=== PATIENT | female | born 1965 | race Asian ===

== ENCOUNTER → 2020-09-18 09:02 | Outpatient (CLI) | payer BC, SELFPAY ==
[2020-09-18 10:16] LABS: Hematocrit 45.2 % (37-47); Mean Corpuscular Hgb 24.7 pg (27.0-32.0); Mean Corpuscular Volume 79.9 fL (81-99); Mean Platelet Vol. 9.2 fl (6.2-12.0); Platelet Count 286 K/mm3 (150-450); RBC Distribution Width CV 13.5 % (11.6-14.6); RBC Distribution Width SD 38.5 fl (35.1-43.9); Red Blood Count 5.66 M/mm3 (4.2-5.4); White Blood Count 5.3 K/mm3 (4.4-11.0)
[2020-09-18 10:42] LABS: AST(SGOT) 18 U/L (15-37); Alanine Aminotransfer ALT/SGPT 44 U/L (13-56); Albumin, Serum 3.7 g/dL (3.2-5.0); Alkaline Phosphatase 98 U/L (45-117); Anion Gap 6 (5-15); BUN 14 mg/dL (7-18); BUN/Creat Ratio 17.8 RATIO (10-20); Calcium,Total 8.8 mg/dL (8.5-10.1); Chloride 110 mmol/L (98-107); Cholesterol 245 mg/dL (200); Creatinine, Serum 0.79 mg/dL (0.55-1.02); EST Glomerular Filtration Rate 80 mL/min (>60); Est Glom Filt Rate - Afr Amer 97 mL/min (>60); Globulin 3.6 g/dL (2.2-4.2); Glucose 95 mg/dL (74-106); High Density Lipoprotein 51 mg/dL; Potassium 3.9 mmol/L (3.5-5.1); Protein, Total 7.3 g/dL (6.4-8.2); Sodium Level 143 mmol/L (136-145); Triglycerides 114 mg/dL; Very Low Density Lipoprotein 23 mg/dL (5-40)
== END ==
PROVIDERS: PCP Family Medicine; Referring Provider Family Medicine; Visit Provider Family Medicine
DX: E78.5 Hyperlipidemia, unspecified (principal)
CPT/HCPCS: 36415; 80053; 80061; 85027

== ENCOUNTER → 2020-11-26 | Outpatient (CLI) | payer BC, SELFPAY ==
[2020-11-26 09:55] VITALS: BMI 34.2
[2020-11-28 20:48] LABS: HPV APTIMA, High Risk Negative (Negative)
== END | disposition home or self-care (01) ==
LOC: LABSPEC 12:29
PROVIDERS: PCP Family Medicine; Referring Provider Nurse Practitioner Women's Health; Visit Provider Nurse Practitioner Women's Health
DX: Z12.4 Encounter for screening for malignant neoplasm of cervix (principal)
CPT/HCPCS: 87624; 88175; G0145

== ENCOUNTER → 2021-02-11 12:22 | Outpatient (CLI) | payer BC, SELFPAY ==
[2020-11-26 09:55] VITALS: BMI 34.2
--- NOTE | 2021-02-11 12:26 | RAD_ITS ---
STUDY: X-RAY - LUMBAR SPINE REASON FOR EXAM: Female, 55 years old. LBP TECHNIQUE: 5 view(s) of the lumbar spine were obtained including oblique views. COMPARISON: None FINDINGS: Normal lumbar lordosis. There is no substantial scoliosis. There is a normal alignment of the vertebrae. There is multilevel endplate spondylosis of the lumbar vertebrae. There is multi-level degenerative disc disease with multi-level disc space narrowing. Facet joint osteoarthritis. Moderate amount of fecal material is seen in the colon. RAD/L/S Spine Min 4 Views IMPRESSION: Degenerative changes of the spine, as detailed above. Electronically Signed: West Hoff MD at 15:42 EDT , Service support ,
[2021-02-11 15:54] LABS: Thyroid Stim Hormone (TSH) 1.62 uIU/mL (0.358-3.74)
== END ==
PROVIDERS: PCP Family Medicine; Referring Provider Family Medicine; Visit Provider Family Medicine
DX: R53.83 Other fatigue (principal); M54.5 Low back pain
CPT/HCPCS: 36415; 72110; 84443

== ENCOUNTER 2021-02-26 18:30 | Outpatient (RCR) | payer BC, SELFPAY ==
[2020-11-26 09:55] VITALS: BMI 34.2
--- NOTE | 2021-01-13 10:43 | HP.PTEVAL ---
Patient's Visit Information MILEY DUTTA is a 55 year old F referred to Physical Therapy by Dr. Scooby Clifford MD with a diagnosis of LBP. Date of Evaluation: 01/13/21 Physical Therapist: Fabiano Park, SOUTHT, OCS, CSCS - Visit Plan Frequency: 2x /Week Duration: 4-6 Weeks Plan: 2x/week for 3-6 for. 1. ,monitor and progress ext biased Lea progression. 2. Teach and progress Pirifomris, ITB and hip flexor stretches to HEP. 3. Core and postural strength adn body mechanics instruct to HEP - Subjective LBP R>L , Legs tingle on and off in calves and laterally. Worse with walking alot. Gardening can make them worse also. This pain wears her out. 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 Can get pain in shoulders and migraines also. LBP has been present for 2-3 years slowly worsening and not constant. Intemrittent. Worse as she gained weight. Sitting is worse and can be hard to get up. 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 Has not missed work. Needs to learn how to stretch. Has seen chiropractor in September and had x rays and has uneven hips. Chiropractic has helped the neck. Sleep is interrupted on days after she gardens. Had to take advvil last week. Lots of bedning in the garden. No other hobbies except walking, no worse back pain when walking but R hip might get sore. Exercises: sometimes stretchi in morning. Basic ADLs are getting done. - Pain LBP Pain Intensity (Out of 10): 1 Pain Intensity Range: 0, 5 - Objective Walks I, trasnfers I, posture is forward head and flat lordosis in L/S. No tenderness in lumbar paraspinals. + L/S compression test. LE ROM WFL but obvious tightness in HS mildly, ITB and pirifromis moderately, hip flexor moderately. L/S AROM ext mod limted, flexion full, SB sore on contralateral side and min liimited. strength LE 4-/5, core 3+. sensation LE WNL to gross light touch. reflexes 2/3 patella and achilles - Balance Scores Functional Gait Assessment Score: 29 % Disability: 3.3400 - Goals Goal 1:: Full L/S AROM without pain Goal Time Frame: 4-6 Weeks Goal 2:: Work withotu increasing pain at end of day. Goal Time Frame: 4-6 Weeks Goal 3:: Gardening and yard work without deficits Goal Time Frame: 4-6 Weeks Goal 4:: Oswestry 3 or less. Goal Time Frame: 4-6 Weeks Goal 5:: I approp HEP for LB ROM, leg stretches and core strength Goal Time Frame: 4-6 Weeks - Rehabilitation Potential Physical Therapy Diagnosis: LBP with functional deficits Rehabilitation Potential: Good - Anticipated Interventions Patient/Client Instruction: Educate patient on: Condition For the Purpose of:: To decrease pain, To increase ROM, To improve muscle performance and motor function Therapeutic Exercise to Include: Strength training, Postural training, Flexibilty training, Gait and locomotor training, Neuromotor development, Passive ROM, Active ROM, Dynamic Lumbar Stabilization, Lea Exercises For the Purpose of:: To decrease pain, To increase ROM, To improve muscle performance and motor function, To increase tolerance to activity/condition/position, To improve gait and locomotor functions Manual Therapy Techniques to Include: Mobilization, Passive ROM, Soft tissue mobilization For the Purpose of:: To decrease pain, To increase ROM Cryotherapy (ice pack, ice massage): Yes For the Purpose of:: To decrease swelling/inflammation Thank you for the opportunity to evaluate your patient. For Medicare and Medicare HMO plans, please review the plan of care and approve it. It will need to be FAXED BACK to us at [phone] for Medicare purposes. For Medicare only, by signing this I certify the plan of care. Please let me know if there are questions or concerns regarding this plan of care. Physician Signature: Date:
--- NOTE | 2021-02-06 07:35 | HP.PTREVAL ---
Dr. Scooby Clifford MD, It has been my pleasure to treat MILEY DUTTA over the last 7 visits for LBP. Please see the progress note below for an update on the physical therapy plan of care! Subjective: Have some improvement since she started. Has improvement with pain intenisty in R hip laterally but is down to 2-3/10 instead of 5/10. LBP still hurts at 3/10 if stressed with movements such as bending. Sleep is OK most nights but needs advil some nights to sleep. HEP:stretching adn yoga at home. Neck has started hurting also. activities at home are normal as well as at work. Has had this pain for 3 years. No other testing for LB performed yet. Had x ray long time ago. Objective/Function: Full aROM L/S with some pain with extension today. SB stretches contralaterally. Hips move well and fel tight but no pain. Walks wella dn steps reciprocally without problems or increase pain. Pain is more general. Overall improved but slow. Strenthening goal HEP stilla ppropriate. Questionable prognosis. Plan Plan: 2x/week for 3 weeks for. strengthening program for core, LE, posture utilizing posture ball, kettle granados and bands and progress to I home program. Pt can do ROM and stretching at home, please progress strengthening aggressively and answer her quaestions. Goals Goal 1:: Full L/S AROM without pain Goal Time Frame: 4-6 Weeks Goal Progress: Goal Met Goal 2:: Work withotu increasing pain at end of day. Goal Time Frame: 4-6 Weeks Goal Progress: Progressing Goal 3:: Gardening and yard work without deficits Goal Time Frame: 4-6 Weeks Goal Progress: Progressing Goal 4:: Oswestry 3 or less. Goal Time Frame: 4-6 Weeks Goal Progress: Goal Met Goal 5:: I approp HEP for LB ROM, leg stretches and core strength Goal Time Frame: 4-6 Weeks Anticipated Interventions Patient/Client Instruction: Educate patient on: Condition For the Purpose of:: To decrease pain, To increase ROM, To improve muscle performance and motor function Therapeutic Exercise to Include: Strength training, Postural training, Flexibilty training, Gait and locomotor training, Neuromotor development, Passive ROM, Active ROM, Dynamic Lumbar Stabilization, Bartolo Exercises For the Purpose of:: To decrease pain, To increase ROM, To improve muscle performance and motor function, To increase tolerance to activity/condition/position, To improve gait and locomotor functions Manual Therapy Techniques to Include: Mobilization, Passive ROM, Soft tissue mobilization For the Purpose of:: To decrease pain, To increase ROM Cryotherapy (ice pack, ice massage): Yes For the Purpose of:: To decrease swelling/inflammation Please do not hesitate to contact me at [phone] by phone or if you have questions or concerns regarding this new plan of care! Sincerely, Fabiano Park, DPT, OCS, CSCS
--- NOTE | 2021-05-01 07:30 | HP.PT.NRP ---
MILEY DUTTA was seen in my office for initial evaluation on 01/13/21. The following Plan of Care was established for this patient: Initial Frequency: 2x /Week Initial Duration: 4-6 Weeks Patient/Client Instruction: Educate patient on: Condition For the Purpose of:: To decrease pain, To increase ROM, To improve muscle performance and motor function Therapeutic Exercise to Include: Strength training, Postural training, Flexibilty training, Gait and locomotor training, Neuromotor development, Passive ROM, Active ROM, Dynamic Lumbar Stabilization, Bartolo Exercises For the Purpose of:: To decrease pain, To increase ROM, To improve muscle performance and motor function, To increase tolerance to activity/condition/position, To improve gait and locomotor functions Manual Therapy Techniques to Include: Mobilization, Passive ROM, Soft tissue mobilization For the Purpose of:: To decrease pain, To increase ROM Cryotherapy (ice pack, ice massage): Yes For the Purpose of:: To decrease swelling/inflammation This patient was last seen in our office 02/26/21. Pertinent comments regarding their Physical therapy will appear below: Pt seen 10 visits of POC and was 50% better. He cancelled his last visit and neglected to attend any further. At this point it has been over two months asnd I will discontinue from PT. At this point I will be discontinuing this patient from physical therapy. I would be happy to see this patient again in the future if found appropriate by the physician. Thank you! Fabiano Park, DPT, OCS, CSCS Balance/Gait/Functional tests - Balance/Special Test Scores Functional Gait Assessment Score: 29 % Disability: 3.3400 Oswestry Low Back Score: 2
== END 2021-02-26 19:00 | disposition home or self-care (01) ==
LOC: PT 18:30
PROVIDERS: PCP Family Medicine; Referring Provider Family Medicine; Visit Provider Family Medicine
DX: M54.41 Lumbago with sciatica, right side (principal)
CPT/HCPCS: 97110; 97161; 97164

== ENCOUNTER → 2021-03-13 10:26 | Outpatient (CLI) | payer BC, SELFPAY ==
[2020-11-26 09:55] VITALS: BMI 34.2
--- NOTE | 2021-03-13 10:29 | STE_ITS ---
Reason For Study: Chest Pain; Family HX of CAD Stress Results Protocol: Dobutamine Stress Echo Maximum Predicted HR: 164 bpm Target HR: 139 bpm % Maximum Predicted HR: 85 % DurationHeart Rate Stage (mm:ss) (bpm) BP Comment Baseline 60 119/75No Chest Pain DSE 10 MCG 3:05 60 117/87No Chest Pain DSE 20 MCG 3:00 139 125/63No Chest Pain DSE 30 MCG 1:00 139 151/79No Chest Pain Recovery 83 125/67No Chest Pain Stress Duration: 7:05 mm:ss Maximum Stress HR: 139 bpm METS: 1 Baseline Echocardiogram Findings Stress Echo Wall motion Data Resting WM Intermediate WM Stress WM ECHO/Stress Test Echo w/o Contrast Interpretation Summary Dobutamine stress echocardiogram. Rest EKG demonstrates sinus bradycardia with a rate of 54 bpm normal intervals are noted resting blood pressure is 119/74 mmHg. Dobutamine was infused starting at 10 mcg/kg/min increasing to a peak of 30 mcg/kg/min. The maximum heart rate attained was 150 bpm which was 91% of max infected heart rate the maximum workload was 1 metabolic equivalent. At rest there were no ST changes noted to suggest ischemia and at peak infusion nonspecific ST changes were noted. The re sting blood pressure was 119/75 with a peak blood pressure 151/79 mmHg. The test was terminated due to attainment of target heart rate. Stress echocardiogram The resting echocardiogram demonstrated an ejection fraction approximately 55% no wall motion abnormalities were noted. There was thickening of all cox and reduction of lo w ventricular cavity size to a peak of ejection fraction of 75%. No wall motion abnormalities were n oted. Conclusion: Normal dobutamine stress echocardiogram with no evidence of ischemia. Ordering Physician: Scooby Clifford Referring Physician: Victoriano Walsh Performed By: Roxanne Hicks, ALLYNCS, RVT
== END ==
PROVIDERS: PCP Family Medicine; Referring Provider Family Medicine; Visit Provider Family Medicine
DX: R07.9 Chest pain, unspecified (principal)
CPT/HCPCS: 93017; 93350; J7040; A4216

== ENCOUNTER 2021-07-28 12:19 | Outpatient (CLI) | payer BC, SELFPAY ==
[2021-07-28 15:17] LABS: Anion Gap 9 (5-15); BUN 13 mg/dL (7-18); BUN/Creat Ratio 18.7 RATIO (10-20); Chloride 107 mmol/L (98-107); Cholesterol 235 mg/dL (200); EST Glomerular Filtration Rate 92 mL/min (>60); Est Glom Filt Rate - Afr Amer 112 mL/min (>60); Glucose 94 mg/dL (74-106); High Density Lipoprotein 46 mg/dL; Potassium 4.1 mmol/L (3.5-5.1); Sodium Level 143 mmol/L (136-145); Triglycerides 128 mg/dL; Very Low Density Lipoprotein 26 mg/dL (5-40)
== END 2021-07-28 23:59 | disposition short-term general hospital (02) ==
LOC: MTLAB 12:21
PROVIDERS: PCP Nurse Practitioner Family; Referring Provider Nurse Practitioner Family; Visit Provider Nurse Practitioner Family
DX: E78.5 Hyperlipidemia, unspecified (principal)
CPT/HCPCS: 36415; 80048; 80061

== ENCOUNTER → 2021-12-08 | Outpatient (CLI) | payer OTHER, SELFPAY ==
--- NOTE | 2021-12-08 07:57 | BI_ITS ---
MAMMOGRAPHY - BILATERAL SCREENING REASON FOR EXAM: Female, 56 years old. Routine annual screening examination. PERTINENT HISTORY: Non-contributory. TECHNIQUE: Digital bilateral breast sae (3D mammographic acquisition) in the CC and MLO projections. 2-D mediolateral oblique (MLO) and craniocaudad (CC) views of both breasts were obtained. CAD: Full Field Digital Mammography with Computer Added Detection was performed. COMPARISON: Comparison is made with prior outside examination of 05/07/2019. FINDINGS: Breast Composition: The breasts are heterogeneously dense, which may obscure small masses. There are no dominant masses or suspicious calcifications. Stable small benign-appearing bilateral axillary lymph nodes. No other significant abnormalities are identified. There has been no significant change since the prior study. BI/SCRN MAMM (CAD)W/SAE BILAT IMPRESSION: Stable bilateral screening mammogram. Yearly follow-up mammogram recommended. (A) ASSESSMENT CATEGORY: BIRADS Category 2: Benign. A letter regarding these results will be sent to the patient by the facility within 30 days. Approximately 10% of breast cancers are not detected by mammography. A normal mammogram should not delay biopsy of a clinically suspicious abnormality. [id number] Electronically Signed: West Hoff MD at 9:29 EDT ,
== END | disposition home or self-care (01) ==
LOC: OPBI 07:56
PROVIDERS: PCP Nurse Practitioner Family; Visit Provider Nurse Practitioner Women's Health
DX: Z12.31 Encounter for screening mammogram for malignant neoplasm of breast (principal)
CPT/HCPCS: 77063; 77067

== ENCOUNTER → 2022-04-05 | Outpatient (CLI) | payer OTHER, SELFPAY ==
--- NOTE | 2022-04-05 14:58 | VDLE_ITS ---
Reason For Study: LLE Pain Procedure LEFT This is a venous duplex using B-mode, color GSV is normal. flow and spectral Doppler. CFV is compressible, spontaneous, phasic, Exam performed in department. competent, and demonstrates normal A preliminary report was called and/or faxed augmentation. to Matthieu ANTHONY. FV is compressible, spontaneous, phasic, competent and demonstrates normal augmentation. POP V is compressible, spontaneous, phasic, competent and demonstrates normal augmentation. T/P Trunk is compressible. PTV is compressible. LT PerV is compressible. VL/Venous Duplex US, Unilateral Interpretation Summary Deep veins of the left lower extremity are patent and compressible segmentally. There is no evidence of left lower extremity deep vein thrombosis. The left great saphenous vein alexis ears patent and compressible segmentally. Ordering Physician: Matthieu Julian Referring Physician: Genevieve Sargent Performed By: Miguelina Posey, KODY, RVT
== END | disposition home or self-care (01) ==
LOC: CVS 14:57
PROVIDERS: PCP Nurse Practitioner Family; Referring Provider Physician Assistant; Visit Provider Physician Assistant
DX: M79.605 Pain in left leg (principal)
CPT/HCPCS: 93971

== ENCOUNTER → 2022-06-22 | Outpatient (CLI) | payer OTHER, SELFPAY ==
[2022-06-22 10:14] LABS: ALB/GLOB Ratio 1.2 RATIO (0.9-2.4); AST(SGOT) 22 U/L (15-37); Alanine Aminotransfer ALT/SGPT 45 U/L (13-56); Albumin, Serum 3.9 g/dL (3.2-5.0); Alkaline Phosphatase 89 U/L (45-117); Anion Gap 8 (5-15); BUN 13 mg/dL (7-18); BUN/Creat Ratio 17.2 RATIO (10-20); Calcium,Total 8.7 mg/dL (8.5-10.1); Chloride 106 mmol/L (98-107); Cholesterol 221 mg/dL (200); Creatinine, Serum 0.76 mg/dL (0.55-1.02); EST Glomerular Filtration Rate 84 mL/min (>60); Est Glom Filt Rate - Afr Amer 101 mL/min (>60); Globulin 3.2 g/dL (2.2-4.2); Glucose 98 mg/dL (74-106); High Density Lipoprotein 54 mg/dL; Potassium 4.3 mmol/L (3.5-5.1); Protein, Total 7.1 g/dL (6.4-8.2); Sodium Level 140 mmol/L (136-145); Triglycerides 85 mg/dL; Very Low Density Lipoprotein 17 mg/dL (5-40)
== END | disposition home or self-care (01) ==
LOC: MTLAB 08:14
PROVIDERS: PCP Nurse Practitioner Family; Referring Provider Family Medicine; Visit Provider Family Medicine
DX: E78.5 Hyperlipidemia, unspecified (principal)
CPT/HCPCS: 36415; 80053; 80061

== ENCOUNTER → 2023-01-19 | Outpatient (CLI) | payer BC, SELFPAY ==
[2023-01-19 11:10] LABS: Erythrocyte Sedimentation Rate 14 mm/hr (0-30)
[2023-01-19 11:31] LABS: Absolute Lymphocyte Count 2.17 X10^3/uL (0.83-4.51); Absolute Neutrophil Count 2.7 X10^3/uL (2.0-7.7); Basophil# 0.05 X10^3/uL; Basophil% 0.9 % (0-1); Eosinophils% 3.7 % (0-5); Hematocrit 44.9 % (37-47); Hemoglobin 14.2 g/dL (12.0-15.0); Lymphocyte # 2.17 X10^3/ul (0.83-4.51); Lymphocyte % 39.7 % (19-41); Mean Corp Hgb Conc 31.6 g/dL (32-36); Mean Corpuscular Hgb 25.6 pg (27.0-32.0); Mean Platelet Vol. 9.3 fl (6.2-12.0); Monocyte# 0.35 X10^3/uL; Monocyte% 6.4 % (0-10); NRBC Flagged by Analyzer 0 % (0-5); Neutrophil # 2.68 X10^3/uL (2.7-7.7); Neutrophil % 48.9 % (47-70); Platelet Count 273 K/mm3 (150-450); RBC Distribution Width SD 40.7 fl (35.1-43.9); Red Blood Count 5.54 M/mm3 (4.2-5.4); White Blood Count 5.5 K/mm3 (4.4-11.0)
[2023-01-19 11:37] LABS: Vitamin B12 468 pg/mL (211-911); Vitamin D,25 Hydroxy 28.5 ng/mL
[2023-01-19 12:01] LABS: AST(SGOT) 24 U/L (15-37); Alanine Aminotransfer ALT/SGPT 42 U/L (13-56); Albumin, Serum 3.6 g/dL (3.2-5.0); Alkaline Phosphatase 89 U/L (45-117); Anion Gap 5 (5-15); BUN 15 mg/dL (7-18); BUN/Creat Ratio 18.4 RATIO (10-20); CRP < 2.90 mg/L (0.0-3.0); Calcium,Total 9.1 mg/dL (8.5-10.1); Chloride 111 mmol/L (98-107); Creatinine, Serum 0.82 mg/dL (0.55-1.02); EST Glomerular Filtration Rate 76 mL/min (>60); Est Glom Filt Rate - Afr Amer 92 mL/min (>60); Free T3 2.7 pg/mL (2.18-3.98); Globulin 3.6 g/dL (2.2-4.2); Glucose 109 mg/dL (74-106); Potassium 3.9 mmol/L (3.5-5.1); Protein, Total 7.2 g/dL (6.4-8.2); Rheumatoid Factor < 10.0 IU/mL (<15); Sodium Level 138 mmol/L (136-145); T4 Free Direct 1.03 ng/dL (0.76-1.46); Thyroid Stim Hormone (TSH) 1.95 uIU/mL (0.358-3.74)
[2023-01-19 13:08] LABS: Hemoglobin A1c 6.2 % (3.8-5.6)
[2023-01-20 13:08] LABS: ANTINUCLEAR ANTIBODIES DIRECT Negative (Negative)
== END | disposition home or self-care (01) ==
LOC: MFPLAB 08:13
PROVIDERS: PCP Family Medicine; Visit Provider Family Medicine
DX: R63.5 Abnormal weight gain (principal); M25.50 Pain in unspecified joint
CPT/HCPCS: 36415; 80053; 82306; 82533; 82607; 83036; 84439; 84443; 84481; 85025; 85652; 86038; 86140; 86431

== ENCOUNTER → 2023-05-26 | Outpatient (CLI) | payer BC, SELFPAY ==
--- NOTE | 2023-05-26 11:48 | RAD_ITS ---
STUDY: X-RAY CHEST REASON FOR EXAM: Female, 58 years old. SOB TECHNIQUE: PA and lateral views of the chest. COMPARISON: None. FINDINGS: The lungs are clear and expanded. There is no demonstrated pleural abnormality. Normal size heart. Normal mediastinum and alfonso. Normal visualized pulmonary arteries. Normal visualized aortic arch and descending thoracic aorta. Normal visualized thoracic spine. Normal visualized ribs, clavicles, and shoulders. There is no demonstrated abnormality of the visualized soft tissue structures of the upper abdomen. RAD/Chest PA and Lateral IMPRESSION: Normal x-ray examination of the chest. Electronically Signed: West Hoff MD at 14:49 EDT ,
== END | disposition home or self-care (01) ==
LOC: MTRAD 11:48
PROVIDERS: PCP Family Medicine; Referring Provider Family Medicine; Visit Provider Family Medicine
DX: J45.909 Unspecified asthma, uncomplicated (principal)
CPT/HCPCS: 71046

== ENCOUNTER → 2023-11-18 | Outpatient (CLI) | payer BC, SELFPAY ==
[2023-11-18 11:03] LABS: Cholesterol 289 mg/dL (200); High Density Lipoprotein 56 mg/dL; Triglycerides 104 mg/dL; Very Low Density Lipoprotein 21 mg/dL (5-40)
== END | disposition home or self-care (01) ==
LOC: MFPLAB 08:26
PROVIDERS: Family Medicine; PCP Family Medicine; Visit Provider Family Medicine
DX: E78.5 Hyperlipidemia, unspecified (principal); R53.83 Other fatigue
CPT/HCPCS: 36415; 80061; 84443

== ENCOUNTER → 2023-12-16 | Outpatient (CLI) | payer BC, SELFPAY ==
[2023-12-16 10:34] LABS: Absolute Lymphocyte Count 1.91 X10^3/uL (0.83-4.51); Absolute Neutrophil Count 2.2 X10^3/uL (2.0-7.7); Basophil# 0.06 X10^3/uL; Basophil% 1.3 % (0-1); Eosinophils% 4.3 % (0-5); Hemoglobin 13.9 g/dL (12.0-15.0); Lymphocyte # 1.91 X10^3/ul (0.83-4.51); Lymphocyte % 40.6 % (19-41); Mean Corp Hgb Conc 31.6 g/dL (32-36); Mean Corpuscular Hgb 24.9 pg (27.0-32.0); Mean Corpuscular Volume 78.9 fL (81-99); Mean Platelet Vol. 9.3 fl (6.2-12.0); Monocyte# 0.31 X10^3/uL; Monocyte% 6.6 % (0-10); NRBC Flagged by Analyzer 0 % (0-5); Neutrophil % 46.8 % (47-70); Platelet Count 292 K/mm3 (150-450); RBC Distribution Width CV 14.2 % (11.6-14.6); RBC Distribution Width SD 40.4 fl (35.1-43.9); Red Blood Count 5.58 M/mm3 (4.2-5.4); White Blood Count 4.7 K/mm3 (4.4-11.0)
[2023-12-16 10:57] LABS: ALB/GLOB Ratio 1.1 RATIO (0.9-2.4); AST(SGOT) 22 U/L (15-37); Alanine Aminotransfer ALT/SGPT 42 U/L (13-56); Albumin, Serum 3.7 g/dL (3.2-5.0); Alkaline Phosphatase 110 U/L (45-117); Anion Gap 6 (5-15); BUN 13 mg/dL (7-18); BUN/Creat Ratio 17.3 RATIO (10-20); Calcium,Total 9.2 mg/dL (8.5-10.1); Chloride 110 mmol/L (98-107); Creatinine, Serum 0.75 mg/dL (0.55-1.02); EST Glomerular Filtration Rate 84 mL/min (>60); Est Glom Filt Rate - Afr Amer 101 mL/min (>60); Globulin 3.5 g/dL (2.2-4.2); Glucose 121 mg/dL (74-106); Potassium 3.9 mmol/L (3.5-5.1); Protein, Total 7.2 g/dL (6.4-8.2); Sodium Level 139 mmol/L (136-145)
== END | disposition home or self-care (01) ==
PROVIDERS: Visit Provider Family Medicine
DX: E78.5 Hyperlipidemia, unspecified (principal)
CPT/HCPCS: 36415; 80053; 82306; 85025

== ENCOUNTER → 2024-04-03 | Outpatient (CLI) | payer BC, SELFPAY ==
--- NOTE | 2024-04-03 07:10 | BI_ITS ---
MAMMOGRAPHY - BILATERAL SCREENING REASON FOR EXAM: Female, 59 years old. Routine annual screening examination. PERTINENT HISTORY: Non-contributory. TECHNIQUE: Digital bilateral breast sae (3D mammographic acquisition) in the CC and MLO projections. 2-D mediolateral oblique (MLO) and craniocaudad (CC) views of both breasts were obtained. CAD: Full Field Digital Mammography with Computer Added Detection was performed. COMPARISON: Comparison is made with prior study dated December 08, 2021. FINDINGS: Breast Composition: The breasts are heterogeneously dense, which may obscure small masses. There are no dominant masses or suspicious calcifications. Stable bilateral sac containing axillary lymph nodes. No other significant abnormalities are identified. There has been no significant change since the prior study. BI/SCRN MAMM (CAD)W/SAE BILAT IMPRESSION: Stable bilateral screening mammogram. Yearly follow-up mammogram recommended. (A) ASSESSMENT CATEGORY: BIRADS Category 2: Benign. A letter regarding these results will be sent to the patient by the facility within 30 days. Approximately 10% of breast cancers are not detected by mammography. A normal mammogram should not delay biopsy of a clinically suspicious abnormality. [id number] Electronically Signed: West Hoff MD at 8:52 EDT ,
== END | disposition home or self-care (01) ==
LOC: OPBI 07:09
PROVIDERS: PCP Family Medicine; Referring Provider Family Medicine; Visit Provider Family Medicine
DX: Z12.31 Encounter for screening mammogram for malignant neoplasm of breast (principal)
CPT/HCPCS: 77063; 77067

== ENCOUNTER → 2024-04-05 | Outpatient (CLI) | payer BC, SELFPAY ==
--- NOTE | 2024-04-05 14:10 | VDLE_ITS ---
Reason For Study: Left leg edema Procedure LEFT This is a venous duplex using B-mode, color GSV is normal. flow and spectral Doppler. CFV is compressible, spontaneous, phasic, Exam performed in department. competent, and demonstrates normal Attempted to fax preliminary several times augmentation. and called office, unable to reach anyone to FV is compressible, spontaneous, phasic, leave a voicmail with. competent and demonstrates normal augmentation. POP V is compressible, spontaneous, phasic, competent and demonstrates normal augmentation. T/P Trunk is compressible. PTV is compressible. LT PerV is compressible. VL/Venous Duplex US, Unilateral Interpretation Summary Deep veins of the left lower extremity are patent and compressible segmentally. There is no evidence of left lower extremity deep vein thrombosis. Valvular competence appears intac t within the proximal deep venous system on the left . The left great saphenous vein appears patent a nd compressible segmentally. Ordering Physician: Levy Burnett Referring Physician: Levy Burnett Performed By: Laurence Bragg RVT
== END | disposition home or self-care (01) ==
PROVIDERS: PCP Family Medicine; Referring Provider Family Medicine; Visit Provider Family Medicine
DX: R60.0 Localized edema (principal)
CPT/HCPCS: 93971

== ENCOUNTER → 2024-04-16 | Outpatient (CLI) | payer BC, SELFPAY ==
[2024-04-16 12:31] LABS: Hemoglobin A1c 6.4 % (3.8-5.6)
== END | disposition home or self-care (01) ==
PROVIDERS: PCP Family Medicine; Referring Provider Family Medicine; Visit Provider Family Medicine
DX: R73.03 Prediabetes (principal)
CPT/HCPCS: 36415; 83036

== ENCOUNTER → 2024-04-19 | Outpatient (CLI) | payer BC, SELFPAY ==
--- NOTE | 2024-04-19 14:26 | RAD_ITS ---
STUDY: X-RAY - CERVICAL SPINE REASON FOR EXAM: Female, 59 years old. Acute neck pain. TECHNIQUE: 7 view(s) of the cervical spine, including lateral flexion and extension views, were obtained. COMPARISON: None FINDINGS: Mild osteopenia. Normal anterior atlantoaxial articulation. Normal odontoid process. Normal cervical lordosis. Diffuse mild uncovertebral and facet sclerosis. Minimal intervertebral disc space narrowing at C5-6 without osteophytes. Limited flexion and extension with no abnormal motion. No neural foraminal encroachment. Normal soft tissues. RAD/Cerv Spine Obl/Flex/Ext Comp IMPRESSION: Osteopenia with limited flexion and extension and no abnormal motion. No other abnormality. Electronically Signed: Tadeo Villalta MD at 15:37 EDT ,
--- NOTE | 2024-04-19 14:26 | RAD_ITS ---
STUDY: X-RAY - LUMBAR SPINE REASON FOR EXAM: Female, 59 years old. Low back pain. TECHNIQUE: 2 view(s) of the lumbar spine were obtained. COMPARISON: X-rays of the lumbar spine dated February 11, 2021 FINDINGS: Mild osteopenia. Normal lumbar lordosis. No scoliosis. 7 mm of anterolisthesis of L4 on L5, slightly increased since the prior study. Diffuse moderate lower thoracic and lumbosacral facet sclerosis. Mild intervertebral disc space narrowing at L2-3, L3-4 and L4-5 with small osteophytes, slightly progressed since the prior study. Normal soft tissues. RAD/Lumbar Spine 2 or 3 Views IMPRESSION: Osteopenia with slight progression of lower thoracic and lumbosacral spondylosis. No acute abnormality or erosive changes. Electronically Signed: Tadeo Villalta MD at 15:52 EDT ,
--- NOTE | 2024-04-19 14:26 | RAD_ITS ---
STUDY: X-RAY - PELVIS AND BILATERAL HIPS REASON FOR EXAM: Female, 59 years old. Right hip pain. TECHNIQUE: AP view of the pelvis.? 2 views of the right hip, and 2 views of the left hip were obtained. COMPARISON: None. FINDINGS: Normal bowel gas pattern. Moderate amount of feces in the colon. Mild osteopenia. Normal bilateral iliac wings, sacroiliac joints and visualized sacrum. Normal bilateral superior and inferior pubic rami. Normal pubic symphysis. Normal bilateral ischial tuberosities. Mild arthrosis of both hips. RAD/Hips B/L min 2 views w/ Pelvis IMPRESSION: Osteopenia with mild arthrosis of both hips. No acute finding. Electronically Signed: Tadeo Villalta MD at 15:49 EDT ,
== END | disposition home or self-care (01) ==
LOC: MTRAD 14:23
PROVIDERS: PCP Family Medicine; Referring Provider Family Medicine; Visit Provider Family Medicine
DX: M54.2 Cervicalgia (principal); M25.551 Pain in right hip; M25.552 Pain in left hip; M54.50 Low back pain, unspecified
CPT/HCPCS: 72052; 72100; 73521

== ENCOUNTER 2024-09-01 09:12 | Emergency (ER) | payer BC, OTHER, SELFPAY ==
[2024-09-01 09:15] VITALS: BP 148/126; PULSE 74; RESP 18; TEMP 36.7; O2SAT 96; BMI 31.3
--- NOTE | 2024-09-01 09:39 | CT_ITS ---
PROCEDURE: CT cervical spine without IV contrast REASON FOR EXAM: Pain, trauma TECHNIQUE: Multiple contiguous axial images of the cervical spine were obtained without the administration of intravenous contrast. Two-dimensional coronal and sagittal reformatted images were reconstructed. Low-dose imaging technique was utilized. COMPARISON: 04/19/2024 FINDINGS: Vertebral body heights are maintained. Negative for acute fracture or traumatic subluxation. Mild/moderate degenerative changes from C5 - C7 including posterior disc osteophyte complexes and at least mild/moderate spinal stenosis. [id number] bilateral bony foraminal narrowing at these levels also noted. Lung apices are clear. No paraspinal mass. CT/Spine Cervical without Contras IMPRESSION: 1. No acute osseous abnormality. 2. Degenerative changes from C5 - C7. One or more dose reduction techniques were used (e.g., Automated exposure contr ol, adjustment of the mA and/or kV according to patient size, use of iterative reconstruction technique). Reading Location: [facility]
--- NOTE | 2024-09-01 09:39 | CT_ITS ---
PROCEDURE: BRAIN/HEAD WITHOUT CONTRAST REASON FOR EXAM: Pain, trauma TECHNIQUE: Multiple contiguous axial images of the brain were obtained without the administration of intravenous contrast. Two-dimensional coronal and sagittal reformatted images were reconstructed. Low-dose imaging technique was utilized. COMPARISON: None FINDINGS: No evidence of acute intracranial hemorrhage, midline shift or mass effect. No definite CT evidence of acute territorial cortical infarction. No hydrocephalus. Mild chronic small-vessel ischemic changes. Calvarium is intact. Paranasal sinuses and mastoid air cells are clear. CT/Brain/Head without Contrast IMPRESSION: No acute intracranial abnormality. One or more dose reduction techniques were used (e.g., Automated exposure contr ol, adjustment of the mA and/or kV according to patient size, use of iterative reconstruction technique). Reading Location: [facility]
--- NOTE | 2024-09-01 09:40 | EX.ED.DYSGE1 ---
HPI History of Present Illness Chief Complaint: Neuro S/Sx Detail of Chief Complaint: Status post fall and hit her head on the ice on . Informant: patient and spouse/S.O. Onset/Context/Timing Onset: Today and Yesterday Context: Gradual Onset Timing: Continuous Current Severity: Mild Maximum Severity: Mild Narrative Narrative: Healthy 59-year-old female history of high cholesterol on a baby aspirin a day. she fell on the ice hit her head on the concrete. No LOC. States she had the back of her head that she thought she was okay later that day she developed a mild headache. She does take a baby aspirin a day. She works at [employer] they checked out thought she was okay. She denies any LOC. No vomiting. Yesterday thought her speech had mild changes to it. She says she has some mild neck pain but she has chronic neck pain. It is no worse since the fall. She denies any weakness to her upper or lower extremities. No trouble walking. Prior similar symptoms: No Recent Illness/Hospitalization: No [facility] Medical History Pain of left lower extremity Migraines ABRAHAM (stress urinary incontinence, female) Abnormal Pap smear of cervix Sleep apnea Hyperlipidemia Home Medications ?Medication ?Instructions ?Recorded ?Last Taken ?Type aspirin 81 mg tablet,delayed 81 mg PO DAILY 11/26/20 Unknown History release (Adult Aspirin Regimen) rosuvastatin 20 mg tablet (Crestor) 40 mg PO DAILY 11/26/20 Unknown History ascorbate calcium (vitamin C) 500 500 mg PO DAILY 12/08/21 Unknown History mg tablet calcium carbonate (Calcium 600) 600 mg PO DAILY 12/08/21 Unknown History multivitamin 1 tab PO DAILY 12/08/21 Unknown History potassium chloride 8 mEq 8 meq PO DAILY 12/08/21 Unknown History capsule,extended release Allergy/AdvReac Type Severity Reaction Status Date / Time No Known Allergies Allergy Verified 09/01/24 09:20 Family History Father Myocardial infarction Brother Myocardial infarction CVA (cerebral vascular accident) Sister Ovarian cancer Mother Ovarian cancer Unknown Hyperlipidemia Surgical History History of colposcopy S/P Social History household members: spouse number of children: 3 current occupational status: employed current occupation: [employer] history of recent travel: No Smoking Status: Never smoker alcohol intake: never substance use type: does not use what type of physical activity do you participate in: walking seatbelt use: always do you feel safe at home: Yes additional social history: - [employer] ROS ED ROS Narrative Denies recent illness. Headache post fall. Constitutional Constitutional ED: Denies chills or fever(s) Eyes Eyes: Denies blurry vision ENT ENT ED: Denies ear pain Cardiovascular Cardiovascular: Denies chest pain Respiratory/Chest Respiratory/Chest: Denies cough or dyspnea Gastrointestinal Gastrointestinal: Denies abdominal pain Genitourinary Genitourinary ED: Denies dysuria or hematuria Musculoskeletal Musculoskeletal: Denies arthralgias or back pain Integumentary Denies abscess or Abrasions Neurologic Neurologic: Reports headache(s); Denies paresthesias or weakness Psychiatric Psychiatric: Denies anxiety or depression Endocrine Endocrinology: Denies cold intolerance Hematologic/Lymphatic Hematologic/Lymphatic: Reports none Allergic/Immunologic Allergic/Immunologic ED: Denies mouth swelling, tongue swelling or urticaria EXAM Physical Exam Narrative Exam Narrative: Well-appearing 59-year-old female. Vital signs are stable afebrile. Initial blood pressure is elevated at 148/126. She does not look septic toxic or any distress. She is sitting upright in bed. at bedside. H EENT exam pupils round reactive light. Extra motions are intact. No facial droop. Normal speech. Face and scalp nontender no signs of trauma no hematoma. Neck nontender. Trachea midline. Lungs clear to auscultation bilaterally. Heart regular rhythm no murmur. Chest wall nontender ribs nontender. Abdomen soft nontender. Pelvic girdle intact. Moving all 4 extremities. 5 out of 5 firer low pressure strength. Dorsi plantarflexion intact. Normal range of motion. Nontender. No deformity. Back nontender. Neurologic exam normal. NIH 0. No facial droop. Her speech seems normal to me and/or her . No dysarthria. No slurred speech. Normal firer low pressure strength. Normal dorsi plantarflexion. Fingertip to nose and [id number] all within normal limits. NIH 0. Const Vital Signs: 09/01/24 09:15 09/01/24 10:25 09/01/24 11:08 Temperature 98.1 F Temperature Source Temporal Pulse Rate 74 68 59 L Respiratory Rate 18 17 15 Blood Pressure 148/126 H 108/65 103/69 Blood Pressure Mean 133 79 80 Pulse Ox 96 98 98 Oxygen Delivery Method Room Air Room Air Room Air Positive well developed; Negative for cachectic, contractures or unkempt General Appearance ED: well developed and NAD; Negative for unkempt, cachectic, contractures, cyanotic, diaphoretic or pallor Nutritional Appearance: Negative for cachectic HEENT Reports moist mucous membranes Negative for trauma or tenderness Eyes PERRL and EOMs intact bilaterally General Eye ED: Negative for pale conjunctiva or scleral icterus Neck no lymphadenopathy, supple and no JVD General: Negative for tenderness Lymph Lymphatic: Negative for other Chest Wall inspection of chest normal and palpation of chest normal Resp normal respiratory effort and clear to auscultation bilaterally Effort and Inspection: Negative for retractions Auscultation: Negative for rales, rhonchi, wheezes or diminished lung sounds Cardio regular rate, regular rhythm, S1 normal heart sound, S2 normal heart sound and no murmurs Palpation: Negative for palpable S3 or palpable S4 Rate: Negative for bradycardia or tachycardic Rhythm: Negative for abnormal rhythm GI normal to inspection, nondistended, normoactive bowel sounds, non-tender, non-distended and no masses Auscultation: normoactive bowel sounds Palpation: soft; Negative for tender, guarding, mass or rebound tenderness present Back/Spine no CVA tenderness General Back: Negative for CVA tenderness or other Cervical Spine: Negative for cervical spine tenderness Thoracic Spine / Upper Back: Negative for thoracic spinal tenderness or paraspinal muscle tenderness Lumbar Spine / Lower Back: Negative for lumbar spinal tenderness Extremity normal to inspection General Extremety ED: Negative for edema or tenderness General Extremity: Negative for edema Neuro oriented x3, CN's II-XII intact bilaterally and no sensory deficits noted Sensorium / Orientation: alert; Negative for orientation impaired, lethargic or stuporous Motor Exam: strength 5/5 throughout; Negative for general weakness or strength abnormal Psych mental status grossly normal Appearance: Negative for unkempt Attitude: No agitated Mood & Affect: Negative for depressed, anxious or tearful Skin no rashes or lesions noted and no wounds General Skin Exam: Negative for jaundice or pallor Lesions: No lesion noted Rashes: No rashes noted Trauma: Negative for abrasion Wounds: Negative for wounds noted MDM MDM MDM Narrative Medical decision making narrative: 59-year-old female fell head injury on thought she had like changes in her voice and speech on Tuesday and Tuesday. Came in to be evaluated. Exam is benign. NIH is 0. CAT scan of her head and neck to be obtained. This may be concussion rule out intracranial bleed. Repeat exam patient is doing well at 12:28 PM. Repeat neurologic exam remains normal. Speech is normal. I went over her CAT scan results with her. She will be treated as a head injury/concussion. History & Record Review Discussion w/independent historian: Patient and Family Lab Data Attestation: I reviewed the patient's lab results. Lab results narrative: Blood sugar 99. Labs: Laboratory Results - last 24 hr 09/01/24 10:23 POC Glucose 99 Radiography Diagnostic Testing: Clinical Impression(s) from Imaging Studies Brain CT 09/01/24 09:39 IMPRESSION: No acute intracranial abnormality. One or more dose reduction techniques were used (e.g., Automated exposure control, adjustment of the mA and/or kV according to patient size, use of iterative reconstruction technique). Reading Location: [facility] Cervical Spine CT 09/01/24 09:39 IMPRESSION: 1. No acute osseous abnormality. 2. Degenerative changes from C5 - C7. One or more dose reduction techniques were used (e.g., Automated exposure control, adjustment of the mA and/or kV according to patient size, use of iterative reconstruction technique). Reading Location: [facility] Discharge Plan Triage Chief Complaint: Neuro S/Sx ED Provider: Richard Villatoro Dx/Rx/DC Orders Clinical Impression: Fall, Head injury Instructions: Concussion Dc Prescriptions: No Action rosuvastatin [Crestor] 20 mg tablet 40 mg PO DAILY aspirin [Adult Aspirin Regimen] 81 mg tablet,delayed release (DR/EC) 81 mg PO DAILY multivitamin Tablet 1 tab PO DAILY potassium chloride 8 mEq capsule, extended release 8 meq PO DAILY ascorbate calcium (vitamin C) 500 mg tablet 500 mg PO DAILY calcium carbonate [Calcium 600] 600 mg calcium (1,500 mg) tablet 600 mg PO DAILY Primary Care Provider: Levy Burnett Referrals: Levy Burnett MD [Primary Care Provider] - As Needed Activity Restrictions/Additional Instructions: CAT scans look good. Most likely of a concussion from the head injury. For the next 1 to 3 weeks you may have intermittent headaches, trouble concentrating, trouble sleeping or increased sleep. This should progressively improve. Tylenol for any pain. Increase your activity as tolerated. Follow-up with your doctor as needed. Print Language: Kazakh Disposition Disposition: Home, Self Care
[2024-09-01 09:48] VITALS: BMI 31.3
[2024-09-01 10:25] VITALS: BP 108/65; PULSE 68; RESP 17; O2SAT 98
[2024-09-01 10:42] LABS: Bedside Glucose 99 mg/dL (74-106)
[2024-09-01 11:08] VITALS: BP 103/69; PULSE 59; RESP 15; O2SAT 98
== END 2024-09-01 13:15 | disposition home or self-care (01) ==
PROVIDERS: Emergency Provider Emergency Medicine; PCP Family Medicine; Visit Provider Emergency Medicine
DX: S09.90XD Unspecified injury of head, subsequent encounter (principal); E78.00 Pure hypercholesterolemia, unspecified; G89.29 Other chronic pain; M54.2 Cervicalgia; W00.9XXD Unspecified fall due to ice and snow, subsequent encounter
CPT/HCPCS: 70450; 72125; 82962; 99282; A4216

== ENCOUNTER → 2024-09-03 | Outpatient (CLI) | payer BC, OTHER, SELFPAY ==
--- NOTE | 2024-09-03 11:50 | RAD_ITS ---
EXAM: XR Lumbosacral Spine, 2 or 3 Views CLINICAL INDICATION: TECHNIQUE: Frontal and lateral views of the lumbar spine and sacrum. COMPARISON: No relevant prior studies available. FINDINGS: VERTEBRAE: Multilevel facet arthropathy of L4-S1. No acute fracture. Normal alignment. SACRUM/COCCYX: Unremarkable as visualized. No acute fracture. DISC SPACES: No acute findings. No significant narrowing. SOFT TISSUES: Unremarkable. GASTROINTESTINAL TRACT: Constipation. RAD/Lumbar Spine 2 or 3 Views IMPRESSION: No acute fracture. Reading Location: [facility]
== END | disposition home or self-care (01) ==
LOC: MTRAD 11:49
PROVIDERS: PCP Family Medicine; Referring Provider Family Medicine; Visit Provider Family Medicine
DX: M54.50 Low back pain, unspecified (principal)
CPT/HCPCS: 72100

== ENCOUNTER → 2025-02-27 | Outpatient (CLI) | payer BC, OTHER, SELFPAY ==
[2025-02-27 12:38] LABS: Hematocrit 43.2 % (37-47); Hemoglobin 13.9 g/dL (12.0-15.0); Mean Corp Hgb Conc 32.2 g/dL (32-36); Mean Corpuscular Volume 78.4 fL (81-99); Mean Platelet Vol. 9.4 fl (6.2-12.0); Platelet Count 281 K/mm3 (150-450); RBC Distribution Width CV 14.1 % (11.6-14.6); RBC Distribution Width SD 40.1 fl (35.1-43.9); Red Blood Count 5.51 M/mm3 (4.2-5.4); White Blood Count 5.7 K/mm3 (4.4-11.0)
[2025-02-27 13:17] LABS: AST(SGOT) 27 U/L (<=31); Alanine Aminotransfer ALT/SGPT 37 U/L (<=34); Albumin, Serum 4.2 g/dL (3.4-4.8); Alkaline Phosphatase 101 U/L (35-104); Anion Gap 13 (5-15); BUN 10 mg/dL (4-19); BUN/Creat Ratio 15.2 RATIO (10-20); Calcium,Total 9.5 mg/dL (7.6-11.0); Carbon Dioxide 21.1 mmol/L (21.0-32.0); Chloride 106 mmol/L (98-108); Cholesterol 232 mg/dL (<=200); Globulin 3.0 g/dL (2.2-4.2); Glucose 99 mg/dL (70-99); Low Density Lipoprotein Calc. 156 mg/dL; Potassium 4.1 mmol/L (3.3-5.1); Triglycerides 92 mg/dL; Very Low Density Lipoprotein 18 mg/dL (5-40); Vitamin D,25 Hydroxy 25.5 ng/mL (30-100); cholesterol:hdl ratio screen 4.05
== END | disposition home or self-care (01) ==
LOC: MFPLAB 10:50
PROVIDERS: PCP Family Medicine; Referring Provider Family Medicine; Visit Provider Family Medicine
DX: G43.909 Migraine, unspecified, not intractable, without status migrainosus (principal); R73.03 Prediabetes
CPT/HCPCS: 36415; 80053; 80061; 82306; 83036; 84443; 85027

== ENCOUNTER → 2025-06-28 | Outpatient (CLI) | payer BC, OTHER, SELFPAY ==
--- NOTE | 2025-06-28 08:00 | BI_ITS ---
EXAM: SCRN MAMM (CAD)W/SAE BILAT DATE: 06/28/2025 CLINICAL HISTORY: F, Age 60 y/o , ANNUAL SCREENING TECHNIQUE: Procedure Code: [id number] Modality: MG Procedure: SCRN MAMM (CAD)W/SAE BILAT COMPARISON: Prior exam(s) dated 04/03/2024, 12/08/2021. FINDINGS: TISSUE DENSITY: The breasts are heterogeneously dense, which may obscure small masses. The mammogram demonstrates that the patient has dense breasts. Supplemental screening with whole breast ultrasound or MRI may be considered for further evaluation. Bilateral Breast Mammographic Findings: No significant masses, calcifications or other abnormalities are identified. BI/SCRN MAMM (CAD)W/SAE BILAT IMPRESSION: There is no mammographic evidence of malignancy. OVERALL FINAL ASSESSMENT BI-RADS 1: NEGATIVE. RECOMMENDATION: Routine annual follow-up in 1 Year Additional Recommendation none A letter with findings and recommendations will be mailed to the patient. Reading Location: [id number]
--- OUTSIDE RECORDS SUMMARY | 2025-06-28 08:08 | XMS RPT_ITS | CCD ---
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 Name Role Phone CHARLIE PAN Unavailable Unavailable CHARLIE PAN Unavailable Unavailable CHIRDON, BHUMIKA Unavailable Unavailable ANTHONY TEJEDA Unavailable Unavailable CHARLIE PAN Unavailable Unavailable CHARLIE PAN Unavailable Unavailable CHIRDON, BHUMIKA Unavailable Unavailable CHARLIE PAN Unavailable Unavailable CHARLIE PAN Unavailable Unavailable CHIRDON, BHUMIKA Unavailable Unavailable LEA CANTU Unavailable Unavailable CHIRDON, BHUMIKA Unavailable Unavailable Holley Esparza Primary Care Provider Holley Esparza Primary Care Provider CHRISTOPH Sargent Primary Care Provider CHRISTOPH Sargent Referring Provider RAJ Aelgria Attending Provider Dr. Charlie Clifford Referring Provider CHRISTOPH Zapata NP Attending Provider [phone] CHRISTOPH Sargent Primary Care Provider CHRISTOPH Sargent Referring Provider RAJ Lopez Attending Provider Dr. Fabiano Redd Attending Provider CHRISTOPH Sargent Primary Care Provider CHRISTOPH Sargent Referring Provider RAJ Lopez Attending Provider Dr. Fabiano Redd Attending Provider RAJ Lopez Referring Provider Levy Burnett MD Primary Care Provider Levy Burnett MD Attending Provider [phone] Levy Burnett MD Referring Provider Hortencia, Levy Attending Unavailable Hortencia, Carloson Referring Unavailable Hortencia, Chalon Primary Care Unavailable Hortencia, Levy Attending Unavailable Hortencia, Carloson Referring Unavailable Hortencia, Chalon Primary Care Unavailable Hortencia, Levy Attending Unavailable Hortencia, Carloson Referring Unavailable Hortencia, Chalon Primary Care Unavailable Chava, Jordon Attending Unavailable Larsen, Jordon Referring Unavailable Hortencia, Chalon Primary Care Unavailable Hortencia, Levy Attending Unavailable Hortencia, Carloson Referring Unavailable Hortencia, Chalon Primary Care Unavailable Richard Villatoro Attending Unavailable Hortencia, Carloson Primary Care Unavailable Hortencia, Levy Attending Unavailable Hortencia, Carloson Referring Unavailable Hortencia, Chalon Primary Care Unavailable Medications Current Medications Medication Drug Class(es) Dates Sig (Normalized) Sig (Original) ascorbic acid 60 mg / beta carotene 5000 unt / copper sulfate 40 mg / dl-alpha tocopheryl acetate 30 unt / sodium selenite 0.04 mg / zinc oxide 40 mg oral tablet (1 source) Vitamin C take 1 tablet by mouth once daily Multiple Vitamins-Minerals (CENTRUM ULTRA WOMENS) TABS Take 1 tablet by mouth daily 0 Active aspirin 81 mg delayed release oral tablet (9 sources) Platelet Aggregation Inhibitor, Nonsteroidal Anti-inflammatory Drug Start: 11-26-2020 take 1 tablet by mouth once daily Aspirin (Adult Aspirin Regimen) 81 mg tablet,delayed release (DR/EC) Active 81 mg PO DAILY November 26, 2020 12:00am take 1 tablet by mouth once evonne y aspirin 81 MG tablet Take 81 mg by mouth daily 0 Active Calcium (2 sources) Phosphate Binder, Calcium take 1 tablet by mouth once daily calcium 600 MG TABS tablet Take 1 tablet by mouth daily 0 Active calcium ascorbate 500 mg oral tablet (14 sources) Start: 12-08-2021 take 1 tablet by mouth once daily Ascorbate Calcium (Vitamin C) 500 mg tablet Active 500 mg PO DAILY December 08, 2021 12:00am Start: 11-26-2020 End: 09-04-2021 take 1 tablet by mouth once daily Ascorbate Calcium (Vitamin C) 500 mg tablet Discontinued 500 mg PO DAILY November 26, 2020 12:00am September 04, 2021 9:40am calcium carbonate 1500 mg oral tablet (7 sources) Start: 12-08-2021 take 1 tablet by mouth once daily Calcium Carbonate (Calcium 600) 600 mg calcium (1,500 mg) tablet Active 600 mg PO DAILY December 08, 2021 12:00am Multiple Vitamins-Minerals (CENTRUM ULTRA WOMENS) TABS (1 source) take 1 tablet by mouth once daily Multiple Vitamins-Minerals (CENTRUM ULTRA WOMENS) TABS Take 1 tablet by mouth daily 0 Active Multivitamin preparation (12 sources) Start: 12-08-2021 take 1 tablet by mouth once daily Multivitamin Active 1 TABLET PO DAILY December 08, 2021 10:58am Start: 12-08-2021 take 1 tablet by mirella th once daily Multivitamin Active 1 TABLET PO DAILY December 07, 2021 11:00pm Start: 12-08-2021 take 1 tablet by mirella th once daily Multivitamin Active 1 TABLET PO DAILY December 08, 2021 12:00am Start: 11-26-2020 End: 09-04-2021 take 1 tablet by mouth once daily Multivitamin Discontinued 1 TABLET PO DAILY November 26, 2020 9:57am September 04, 2021 9:40am Start: 11-26-2020 End: 09-04-2021 take 1 tablet by mouth once daily Multivitamin Discontinued 1 TABLET PO DAILY November 25, 2020 11:00pm September 04, 2021 8:40am Start: 11-26-2020 End: 09-04-2021 take 1 tablet by mouth once daily Multivitamin Discontinued 1 TABLET PO DAILY November 26, 2020 12:00am September 04, 2021 9:40am Multivitamin tablet (2 sources) Start: 12-08-2021 Multivitamin t ablet Active 1 {tbl} PO DAILY December 08, 2021 12:00am Start: 11-26-2020 End: 09-04-2021 Multivitamin tablet Disconti nued 1 {tbl} PO DAILY November 26, 2020 12:00am September 04, 2021 9:40am potassium chloride 8 meq extended release oral capsule (14 sources) Start: 12-08-2021 take 1 capsule by mouth once daily Potassium Chloride 8 mEq capsule, extended release Active 8 meq PO DAILY December 08, 2021 12:00am Start: 11-26-2020 End: 09-04-2021 take 1 tablet by mouth once daily Potassium Chloride 8 mEq tablet extended release Discontinued 8 meq PO DAILY November 26, 2020 12:00am September 04, 2021 9:40am rosuvastatin calcium 20 mg oral tablet (9 sources) HMG-CoA Reductase Inhibitor Start: 11-26-2020 take 2 tablets by mouth once daily Rosuvastatin (Crestor) 20 mg tablet Active 40 mg PO DAILY November 26, 2020 12:00am Start: 11-26-2020 take 1 tablet by mirella th once daily Rosuvastatin (Crestor) 20 mg tablet Active 20 MG PO DAILY November 26, 2020 12:00am Start: 06-25-2016 take 1 tablet by mirella th once daily rosuvastatin (CRESTOR) 10 MG tablet Take 1 tablet by mouth daily 90 tablet 0 06/25/2016 Active vitamin e 400 unt oral tablet (2 sources) take 1 tablet by mirella th once daily Vitamin E 400 UNITS TABS Take 1 tablet by mouth daily 0 Active Completed/Discontinued Medications Medication Drug Class(es) Dates Sig (Normalized) Sig (Original) cholecalciferol 0.05 mg oral capsule (7 sources) Vitamin D Start: 11-26-2020 End: 09-04-2021 take 1 capsule by mouth once daily Cholecalciferol (Vitamin D3) 50 mcg (2,000 unit) capsule Discontinued 50 ug PO DAILY November 26, 2020 12:00am September 04, 2021 9:40am Problems Active Problems Problem Classification Problem Date Documented Da te Episodic/Chronic E Codes: Fall (1 source) Fall; Translations: [Unspecified fall, initial encounter] 09-09-2024 Episodic Genitourinary symptoms and ill-defined conditions (8 sources) Female stress incontinence; Translations: [Stress incontinence (female) (male)] Chronic Comment on above: stable Headache; including migraine (8 sources) Migraine; Translations: [Migraine, unspecified, not intractable, without status migrainosus] Onset: 03-07-2025 09-04-2021 Chronic Headache; including migraine (1 source) Headache; including migraine; Translations: [Headache, unspecified] Onset: 10-17-2024 Other connective tissue disease (6 sources) Pain in left lower limb; Translations: [Pain in left leg] 04-05-2022 Episodic Other connective tissue disease (2 sources) Pain in left leg; Translations: [Pain in limb] Episodic Other injuries and conditions due to external causes (1 source) Injury of head; Translations: [Unspecified injury of head, initial encounter] 09-09-2024 Episodic Residual codes; unclassified (7 sources) Family history of malignant neoplasm of ovary in first degree relative; Translations: [Family history of malignant neoplasm of ovary] 11-26-2020 Episodic Comment on above: Mother and sister de c. Pt gen screen negative Residual codes; unclassified (1 source) Family history of malignant neoplasm of ovary; Translations: [Family history of malignant neoplasm of ovary] Episodic Unclassified (1 source) Low back pain, unspecified; Translations: [Low back pain, unspecified] Onset: 10-17-2024 Past or Other Problems Problem Classification Problem Date Documented Da te Episodic/Chronic Diabetes mellitus without complication (1 source) Prediabetes; Translations: [Prediabetes] Onset: 05-08-2024 Episodic Other screening for suspected conditions (not mental disorders or infectious disease) (1 source) Encounter for screening mammogram for malignant neoplasm of breast; Translations: [Encounter for screening mammogram for malignant neoplasm of breast] Onset: 04-23-2024 Episodic Residual codes; unclassified (1 source) Localized edema; Translations: [Localized edema] Onset: 10-04-2024 Episodic Spondylosis; intervertebral disc disorders; other back problems (1 source) Cervicalgia; Translations: [Cervicalgia] Onset: 08-03-2024 Episodic Results Test Name Value Interpretation Reference Range Facility Anion gap in Serum or Plasma Ordered By: Levy Burnett on 02-27-2025 Anion gap [Moles/Vol] 13 mmol/L - [facility] BUN/creatinine ratioOrdered By: Levy Burnett on 02-27-2025 Urea nitrogen/Creatinine [Mass ratio] 15.2 mg/mg 05-13 [facility] Bilirubin, totalOrdered By: Levy Burnett on 02-27-2025 Bilirubin [Mass/Vol] 0.40 mg/dL 0.00-1.30 [facility] CBC-Complete Blood Cnt No Di ffon 02-27-2025 Erythrocyte distribution width (RBC) [Ratio] 14.1 % Normal 11.6-14.6 [facility] Comment on above: Order Comment: Order Date: 02/19/25Order Info: [id number] - CBC Performed By: #### L 500.4050, L500.4100, L100.0500, L501.9520 ####[facility] [address] [place], [address] Hematocrit (Bld) [Volume fraction] 43.2 % Normal 37-47 [facility] Comment on above: Order Comment: Order Date: 02/19/25Order Info: [id number] - CBC Performed By: #### L 500.4050, L500.4100, L100.0500, L501.9520 ####[facility] [address] [place], [address] Hemoglobin (Bld) [Mass/Vol] 13.9 g/dL Normal 12.0-15.0 [facility] Comment on above: Order Comment: Order Date: 02/19/25Order Info: [id number] - CBC Performed By: #### L 500.4050, L500.4100, L100.0500, L501.9520 ####[facility] [address] [place], [address] MCH (RBC) [Entitic mass] 25.2 pg Low 27.0-32.0 [facility] Comment on above: Order Comment: Order Date: 02/19/25Order Info: [id number] - CBC Performed By: #### L 500.4050, L500.4100, L100.0500, L501.9520 ####[facility] [address] [place], [address] MCHC (RBC) [Mass/Vol] 32.2 g/dL Normal 32-36 [facility] Comment on above: Order Comment: Order Date: 02/19/25Order Info: [id number] - CBC Performed By: #### L 500.4050, L500.4100, L100.0500, [id number] ####[facility] [address] [place], [address] MCV (RBC) [Entitic vol] 78.4 fL Low 81-99 [facility] Comment on above: Order Comment: Order Date: 02/19/25Order Info: [id number] - CBC Performed By: #### L 500.4050, L500.4100, L100.0500, [id number] ####[facility] [address] [place], [address] Platelet mean volume (Bld) [Entitic vol] 9.4 fL Normal 6.2-12.0 [facility] Comment on above: Order Comment: Order Date: 02/19/25Order Info: [id number] - CBC Performed By: #### L 500.4050, L500.4100, L100.0500, [id number] ####[facility] [address] [place], [address] Platelets (Bld) [#/Vol] 281 10*3/uL Normal 150-450 [facility] Comment on above: Order Comment: Order Date: 02/19/25Order Info: [id number] - CBC Performed By: #### L 500.4050, L500.4100, L100.0500, L501.9520 ####[facility] [address] [place], [address] RBC (Bld) [#/Vol] 5.51 10*6/uL High 4.2-5.4 [facility] Comment on above: Order Comment: Order Date: 02/19/25Order Info: [id number] - CBC Performed By: #### L 500.4050, L500.4100, L100.0500, [id number] ####[facility] [address] [place], [address] RDW SD 40.1 fl Normal 35.1-43.9 [facility] Comment on above: Order Comment: Order Date: 02/19/25Order Info: [id number] - CBC Performed By: #### L 500.4050, L500.4100, L100.0500, [id number] ####[facility] [address] [place], [address] WBC (Bld) [#/Vol] 5.7 10*3/uL Normal 4.4-11.0 [facility] Comment on above: Order Comment: Order Date: 02/19/25Order Info: [id number] - CBC Performed By: #### L 500.4050, L500.4100, L100.0500, L501.9520 ####[facility] [address] [place], [address] Calculated very low density lipoprotein (VLDL) cholesterol measurementOrdered By: Levy Burnett on 02-27-2025 Calculated very low density lipoprotein (VLDL) cholesterol measurement 18 mg/dL 5-40 [facility] Carbon dioxide, total [Moles /volume] in Central venous bloodOrdered By: Levy Burnett on 02-27-2025 CO2 [Moles/Vol] 21.1 mmol/L 21.0-32.0 [facility] Chloride assayOrdered By: Jairo Burnett on 02-27-2025 Chloride [Moles/Vol] 106 mmol/L 98-108 [facility] Comprehensive Metabolic Prof ilon 02-27-2025 Albumin [Mass/Vol] 4.2 g/dL Normal 3.4-4.8 [facility] Comment on above: Order Comment: Order Date: 02/19/25Order Info: [id number] - CMPOrder Info: [id number] - LIPIDOrder Info: [id number] - TSH Performed By: #### L 500.4050, L500.4100, L100.0500, L501.9520 ####[facility] [address] [place], [place], [id number] Albumin/Globulin [Mass ratio] 1.4 {ratio} Normal 0.9-2.4 [facility] Comment on above: Order Comment: Order Date: 02/19/25Order Info: [id number] - CMPOrder Info: [id number] - LIPIDOrder Info: [id number] - TSH Performed By: #### L 500.4050, L500.4100, L100.0500, [id number] ####[facility] [address] [place], [address] ALK PHOS 101 U/L Normal 35-104 [facility] Comment on above: Order Comment: Order Date: 02/19/25Order Info: [id number] - CMPOrder Info: [id number] - LIPIDOrder Info: [id number] - TSH Performed By: #### L 500.4050, L500.4100, L100.0500, L501.9520 ####[facility] [address] [place], [address] ALT [Catalytic activity/Vol] 37 U/L High <=34 [facility] Comment on above: Order Comment: Order Date: 02/19/25Order Info: [id number] - CMPOrder Info: [id number] - LIPIDOrder Info: [id number] - TSH Performed By: #### L 500.4050, L500.4100, L100.0500, L501.9520 ####[facility] [address] [place], [address] AST [Catalytic activity/Vol] 27 U/L Normal <=31 [facility] Comment on above: Order Comment: Order Date: 02/19/25Order Info: [id number] - CMPOrder Info: [id number] - LIPIDOrder Info: [id number] - TSH Performed By: #### L 500.4050, L500.4100, L100.0500, L501.9520 ####[facility] [address] [place], [address] Bilirubin [Mass/Vol] 0.40 mg/dL Normal 0.00-1.30 [facility] Comment on above: Order Comment: Order Date: 02/19/25Order Info: [id number] - CMPOrder Info: [id number] - LIPIDOrder Info: [id number] - TSH Performed By: #### L 500.4050, L500.4100, L100.0500, L501.9520 ####[facility] [address] [place], [address] BUN/CRE 15.2 RATIO Normal 10-20 [facility] Comment on above: Order Comment: Order Date: 02/19/25Order Info: [id number] - CMPOrder Info: [id number] - LIPIDOrder Info: [id number] - TSH Performed By: #### L 500.4050, L500.4100, L100.0500, [id number] ####[facility] [address] [place], [address] Calcium [Mass/Vol] 9.5 mg/dL Normal 7.6-11.0 [facility] Comment on above: Order Comment: Order Date: 02/19/25Order Info: [id number] - CMPOrder Info: [id number] - LIPIDOrder Info: 6-3 - TSH Performed By: #### L 500.4050, L500.4100, L100.0500, L501.9520 ####[facility] [address] [place], [address] Chloride [Moles/Vol] 106 mmol/L Normal 98-108 [facility] Comment on above: Order Comment: Order Date: 02/19/25Order Info: [id number] - CMPOrder Info: [id number] - LIPIDOrder Info: 6-3 - TSH Performed By: #### L 500.4050, L500.4100, L100.0500, [id number] ####[facility] [address] [place], [address] CO2 [Moles/Vol] 21.1 mmol/L Normal 21.0-32.0 [facility] Comment on above: Order Comment: Order Date: 02/19/25Order Info: [id number] - CMPOrder Info: - LIPIDOrder Info: [id number] - TSH Performed By: #### L 500.4050, L500.4100, L100.0500, L501.9520 ####[facility] [address] [place], [address] Creatinine [Mass/Vol] 0.62 mg/dL Low 0.70-1.20 [facility] Comment on above: Order Comment: Order Date: 02/19/25Order Info: [id number] - CMPOrder Info: [id number] - LIPIDOrder Info: 3 - TSH Performed By: #### L 500.4050, L500.4100, L100.0500, L501.9520 ####[facility] [address] [place], [address] GAP 13 Normal 5-15 [facility] Comment on above: Order Comment: Order Date: 02/19/25Order Info: [id number] - CMPOrder Info: - LIPIDOrder Info: 3 - TSH Performed By: #### L 500.4050, L500.4100, L100.0500, L501.9520 ####[facility] [address] [place], [address] GFR/1.73 sq M.predicted among non-blacks MDRD (S/P/Bld) [Vol rate/Area] 102 mL/min/{1.73_m2} Normal >60 [facility] Comment on above: Order Comment: Order Date: 02/19/25Order Info: [id number] - CMPOrder Info: [id number] - LIPIDOrder Info: [id number] - TSH Result Comment: mL/m in/1.73m2 CKD-EPI Creatinine Equation (2020) Performed By: #### L 500.4050, L500.4100, L100.0500, L501.9520 ####[facility] [address] [place], [address] Globulin (S) [Mass/Vol] 3.0 g/dL Normal 2.2-4.2 [facility] Comment on above: Order Comment: Order Date: 02/19/25Order Info: [id number] - CMPOrder Info: [id number] - LIPIDOrder Info: 3 - TSH Performed By: #### L 500.4050, L500.4100, L100.0500, L501.9520 ####[facility] [address] [place], [address] Glucose [Mass/Vol] 99 mg/dL Normal 70-99 [facility] Comment on above: Order Comment: Order Date: 02/19/25Order Info: [id number] - CMPOrder Info: [id number] - LIPIDOrder Info: [id number] - TSH Performed By: #### L 500.4050, L500.4100, L100.0500, L501.9520 ####[facility] [address] [place], [address] Potassium [Moles/Vol] 4.1 mmol/L Normal 3.3-5.1 [facility] Comment on above: Order Comment: Order Date: 02/19/25Order Info: [id number] - CMPOrder Info: [id number] - LIPIDOrder Info: [id number] - TSH Performed By: #### L 500.4050, L500.4100, L100.0500, L501.9520 ####[facility] [address] [place], [address] Sodium [Moles/Vol] 140 mmol/L Normal 133-145 [facility] Comment on above: Order Comment: Order Date: 02/19/25Order Info: [id number] - CMPOrder Info: [id number] - LIPIDOrder Info: 3 - TSH Performed By: #### L 500.4050, L500.4100, L100.0500, L501.9520 ####[facility] [address] [place], [address] T PROT 7.2 g/dL Normal 5.9-8.4 [facility] Comment on above: Order Comment: Order Date: 02/19/25Order Info: [id number] - CMPOrder Info: [id number] - LIPIDOrder Info: [id number] - TSH Performed By: #### L 500.4050, L500.4100, L100.0500, L501.9520 ####[facility] [address] [facility] [place], [place], [address] Urea nitrogen [Mass/Vol] 10 mg/dL Normal 4-19 [facility] Comment on above: Order Comment: Order Date: 02/19/25Order Info: [id number] - CMPOrder Info: [id number] - LIPIDOrder Info: [id number] - TSH Performed By: #### L 500.4050, L500.4100, L100.0500, L501.9520 ####[facility] [address] [facility] [place], [place], [address] Erythrocyte distribution wid th ratioOrdered By: Levy Burnett on 02-27-2025 Erythrocyte distribution width (RBC) [Ratio] 14.1 % 11.6-14.6 [facility] Erythrocyte distribution wid th standard deviationOrdered By: Levy Burnett on 02-27-2025 Erythrocyte distribution width (RBC) [Ratio] 40.1 fl 35.1-43.9 [facility] Glomerular filtration rate ( GFR) estimation/1.73 sq m using serum, plasma, or whole bOrdered By: Levy Burnett on 02-27-2025 GFR/1.73 sq M.predicted among non-blacks MDRD (S/P/Bld) [Vol rate/Area] 102 mL/min/{1.73_m2} >60 [facility] Comment on above: mL/min/1.73m2 CKD-EP I Creatinine Equation (2020) Hematocrit Auto (Bld) [Volum e fraction]Ordered By: Levy Burnett on 02-27-2025 Hematocrit (Bld) [Volume fraction] 43.2 % 37-47 [facility] Hemoglobin A1con 02-27-2025 HbA1c (Bld) [Mass fraction] 6.6 % High <=5.6 [facility] Comment on above: Order Comment: Order Date: 02/23/25Order Info: [id number] - A1C Result Comment: Norm al < 5.7 % Prediabetic 5.7 - 6.4 % Diabetic >or= 6.5 % Please note range changes. Performed By: #### L 501.9985 ####[facility] [address] [place], [place], [id number] Hemoglobin A1c percentageOrd ered By: Levy Burnett on 02-27-2025 HbA1c (Bld) [Mass fraction] 6.6 % High <5.7 [facility] Comment on above: Normal < 5.7 % Predi abetic 5.7 - 6.4 % Diabetic >or= 6.5 % Please note range changes. Hemoglobin measurementOrdere d By: Levy Burnett on 02-27-2025 Hemoglobin (Bld) [Mass/Vol] 13.9 g/dL 12.0-15.0 [facility] LDL calc ser/plasOrdered By: Levy Burnett on 02-27-2025 Cholesterol in LDL [Mass/Vol] 156 mg/dL [facility] Comment on above: Kjdkcoiucv=743-437 m g/dL & Higher Rvru=551 mg/dL or greaterFriedwald Equation for LDL-C Laboratory - Chemistry and C hemistry - challengeOrdered By: Levy Burnett on 02-27-2025 AST [Catalytic activity/Vol] 27 U/L <32 [facility] Lipid Profileon 02-27-2025 CHOL:HDL 4.05 Normal [facility] Comment on above: Order Comment: Order Date: 02/19/25Order Info: [id number] - CMPOrder Info: [id number] - LIPIDOrder Info: [id number] - TSH Performed By: #### L 500.4050, L500.4100, L100.0500, L501.9520 ####[facility] [address] [place], [place], [address] Cholesterol [Mass/Vol] 232 mg/dL High <=200 [facility] Comment on above: Order Comment: Order Date: 02/19/25Order Info: [id number] - CMPOrder Info: [id number] - LIPIDOrder Info: [id number] - TSH Result Comment: Chol esterol level, Desirable <200 mg/dL Borderline high cholesterol 200-239 mg/dL High cholesterol >=240 mg/dL Recommendations of the NCEP Adult Treatment Panel for the following risk-cutoff thresholds for the [place] population. Performed By: #### L 500.4050, L500.4100, L100.0500, L501.9520 ####[facility] [address] [place], [address] Cholesterol in HDL [Mass/Vol] 57 mg/dL Normal [facility] Comment on above: Order Comment: Order Date: 02/19/25Order Info: [id number] - CMPOrder Info: [id number] - LIPIDOrder Info: [id number] - TSH Result Comment: [place] on[place] Cholesterol Education Program (NCEP) guidelines: <40 mg/dL: Low HDL-cholesterol (major risk factor for CHD) >= 60 mg/dL: High HDL-cholesterol (negative risk factor for CHD) HDL-cholesterol is affected by a number of factors, e.g. smoking, exercise, hormones, sex and age. Performed By: #### L 500.4050, L500.4100, L100.0500, L501.9520 ####[facility] [address] [place], [address] Cholesterol in LDL [Mass/Vol] 156 mg/dL Normal [facility] [facility] Comment on above: Order Comment: Order Date: 02/19/25Order Info: [id number] - CMPOrder Info: [id number] - LIPIDOrder Info: [id number] - TSH Result Comment: Bord bwqcke=065-794 mg/dL Higher Akia=053 mg/dL or greater Friedwald Equation for LDL-C Performed By: #### L 500.4050, L500.4100, L100.0500, L501.9520 ####[facility] [address] [place], [address] Cholesterol in VLDL [Mass/Vol] 18 mg/dL Normal 5-40 [facility] Comment on above: Order Comment: Order Date: 02/19/25Order Info: [id number] - CMPOrder Info: [id number] - LIPIDOrder Info: [id number] - TSH Performed By: #### L 500.4050, L500.4100, L100.0500, L501.9520 ####[facility] [address] [place], [place], [address] Triglyceride [Mass/Vol] 92 mg/dL Normal [facility] Comment on above: Order Comment: Order Date: 02/19/25Order Info: [id number] - CMPOrder Info: [id number] - LIPIDOrder Info: [id number] - TSH Result Comment: The drugs N-Acetylcysteine and Metamizole may falsely depress this assay. Normal range: <150 mg/dL Borderline High: 150-199 mg/dL High: 200-499 mg/dL Very High: >500 mg/dL Performed By: #### L 500.4050, L500.4100, L100.0500, L501.9520 ####[facility] [address] [place], [address] MCV (mean corpuscular volume ) determinationOrdered By: Levy Burnett on 02-27-2025 MCV (RBC) [Entitic vol] 78.4 fL Low 81-99 [facility] Mean corpuscular hemoglobin (MCH) determinationOrdered By: Levy Burnett on 02-27-2025 MCH (RBC) [Entitic mass] 25.2 pg Low 27.0-32.0 [facility] Mean corpuscular hemoglobin concentration (MCHC) determinationOrdered By: Levy Burnett on 02-27-2025 MCHC (RBC) [Mass/Vol] 32.2 g/dL 32-36 [facility] Mean platelet volume determi nationOrdered By: Levy Burnett on 02-27-2025 Platelet mean volume (Bld) [Entitic vol] 9.4 fL 6.2-12.0 [facility] Platelet countOrdered By: Jairo Burnett on 02-27-2025 Platelets (Bld) [#/Vol] 281 10*3/uL 150-450 [facility] Potassium measurement (mass/ volume)Ordered By: Levy Burnett on 02-27-2025 Potassium (Unsp spec) [Mass/Vol] 4.1 mmol/L 3.3-5.1 [facility] RBC Auto (Bld) [#/Vol]Ordere d By: Levy Burnett on 02-27-2025 RBC (Bld) [#/Vol] 5.51 10*6/uL High 4.2-5.4 [facility] Screening total cholesterol/ high density lipoprotein (HDL) cholesterol ratioOrdered By: Levy Burnett on 02-27-2025 Cholesterol.total/Merline sterol in HDL [Mass ratio] 4.05 {ratio} [facility] Serum creatinine measurement (mass/volume)Ordered By: Levy Burnett on 02-27-2025 Creatinine [Mass/Vol] 0.62 mg/dL Low 0.70-1.20 [facility] Serum globulin measurementOr dered By: Levy Burnett on 02-27-2025 Globulin (S) [Mass/Vol] 3.0 g/dL 2.2-4.2 [facility] Serum glucose measurement (m ass/volume)Ordered By: Levy Burnett on 02-27-2025 Glucose [Mass/Vol] 99 mg/dL 70-99 [facility] Serum or plasma alanine diop otransferase (ALT) measurementOrdered By: Levy Burnett on 02-27-2025 ALT [Catalytic activity/Vol] 37 U/L High <35 [facility] Serum or plasma albumin marlon urement (mass/volume)Ordered By: Levy Burnett on 02-27-2025 Albumin [Mass/Vol] 4.2 g/dL 3.4-4.8 [facility] Serum or plasma albumin/glob ulin mass ratioOrdered By: Levy Burnett on 02-27-2025 Albumin/Globulin [Mass ratio] 1.4 {ratio} 0.9-2.4 [facility] Serum or plasma alkaline denton sphatase measurementOrdered By: Levy Burnett on 02-27-2025 ALP [Catalytic activity/Vol] 101 U/L 35-104 [facility] Serum or plasma calcium marlon urement (mass/volume)Ordered By: Levy Burnett on 02-27-2025 Calcium [Mass/Vol] 9.5 mg/dL 7.6-11.0 [facility] Serum or plasma cholesterol in HDL measurement (mass/volume)Ordered By: Levy Burnett on 02-27-2025 Cholesterol in HDL [Mass/Vol] 57 mg/dL >40 [facility] Comment on above: National Cholesterol Education Program (NCEP) guidelines:<40 mg/dL: Low HDL-cholesterol (major risk factor for CHD)>= 60 mg/dL: High HDL-cholesterol (negative risk factor for CHD)HDL-cholesterol is affected by a number of factors, e.g. smoking, exercise, hormones, sex and age. Serum or plasma cholesterol measurement (mass/volume)Ordered By: Levy Burnett on 02-27-2025 Cholesterol [Mass/Vol] 232 mg/dL High <201 [facility] Comment on above: Cholesterol level, D esirable <200 mg/dLBorderline high cholesterol 200-239 mg/dLHigh cholesterol >=240 mg/dLRecommendations of the NCEP Adult Treatment Panel for the following risk-cutoff thresholds for the [place] population. Serum or plasma urea nitroge n measurement (mass/volume)Ordered By: Levy Burnett on 02-27-2025 Urea nitrogen [Mass/Vol] 10 mg/dL 4-19 [facility] Sodium levelOrdered By: Carlos Burnett on 02-27-2025 Sodium [Moles/Vol] 140 mmol/L 133-145 [facility] TSH DL <= 0.005 mIU/L QnOrde red By: Levy Burnett on 02-27-2025 TSH Qn 1.690 uIU/mL 0.300-4.200 [facility] Thyroid Stim Hormone (TSH)on 02-27-2025 TSH 1.690 uIU/mL Normal 0.300-4.200 [facility] Comment on above: Order Comment: Order Date: 02/19/25Order Info: [id number] - CMPOrder Info: [id number] - LIPIDOrder Info: [id number] - TSH Performed By: #### L 500.4050, L500.4100, L100.0500, L501.9520 ####[facility] [address] [place], [place], [id number] Total proteinOrdered By: Holly Burnett on 02-27-2025 Protein [Mass/Vol] 7.2 g/dL 5.9-8.4 [facility] Triglycerides measurementOrd ered By: Levy Burnett on 02-27-2025 Triglyceride [Mass/Vol] 92 mg/dL <199 [facility] Comment on above: The drugs N-Acetylcy steine and Metamizole may falsely depress this assay. Normal range: <150 mg/dLBorderline High: 150-199 mg/dLHigh: 200-499 mg/dLVery High: >500 mg/dL Vitamin D,25 Hydroxyon 02-27 Vitamin D 25-OH 25.5 ng/mL Low 30-100 [facility] Comment on above: Order Comment: Order Date: 02/19/25 Order Info: [id number] - CMP Order Info: [id number] - LIPID Order Info: [id number] - TSH Result Comment: Radha min D Status Deficiency: <20 ng/mL (50nmol/L) Insufficiency: 20-30 ng/mL (50-75 nmol/L) Sufficiency: 30-100 ng/mL (75-250 nmol/L) Toxicity: >100 ng/mL (>250 nmol/L) Performed By: #### L 506.1001 #### [facility] [address] [place], [place], [id number] White blood cell (WBC) count Ordered By: Levy Burnett on 02-27-2025 WBC (Bld) [#/Vol] 5.7 10*3/uL 4.4-11.0 [facility] Lumbar Spine 2 or 3 Viewson 09-03-2024 Lumbar Spine 2 or 3 Views [facility] Imaging Services [address] [place], [place] [id number] Lumbar Spine 2 or 3 Views MR#: [id number] Acct: [id number] Name: MILEY DUTTA NALLELY Rep #: [id number] : 1965 F 59 From: Bryn Lees MD PCP: Dr. Levy Burnett MD Status: REG CLI Study: Lumbar Spine 2 or 3 Views Date of Exam: Exam# [id number] Ordering Dr: Jordon Larsen MD EXAM: XR Lumbosacral Spine, 2 or 3 Views CLINICAL INDICATION: TECHNIQUE: Frontal and lateral views of the lumbar spine and sacrum. COMPARISON: No relevant prior studies available. FINDINGS: VERTEBRAE: Multilevel facet arthropathy of L4-S1. No acute fracture. Normal alignment. SACRUM/COCCYX: Unremarkable as visualized. No acute fracture. DISC SPACES: No acute findings. No significant narrowing. SOFT TISSUES: Unremarkable. GASTROINTESTINAL TRACT: Constipation. RAD/Lumbar Spine 2 or 3 Views IMPRESSION: No acute fracture. Reading Location: [facility] CC: Dr. Levy Burnett MD; Dr. Jordon Larsen MD Lumber Trimmer: Signed Normal [facility] Bedside Glucoseon 09-01-2024 FINGERSTICK GLU 99 mg/dL Normal 74-106 [facility] Comment on above: Result Comment: BERTRAND GEMENT OF PATIENT CARE PER NURSING PROTOCOL Performed By: #### L 501.080 #### [facility] Laboratory [address] [place], [address] Brain/Head without Contrasto n 09-01-2024 Brain/Head without Contrast [facility] Imaging Services [address] [place] [address] Brain/Head without Contrast MR#: [id number] Acct: [id number] Name: MILEY DUTTA SHAYMAGUE Rep #: [id number] : 1965 F 59 From: Sean Jacome PCP: Dr. Levy Burnett MD Status: PRE ER Study: Brain/Head without Contrast Date of Exam: 03/18 Exam# [id number] Ordering Dr: Richard Villatoro MD PROCEDURE: BRAIN/HEAD WITHOUT CONTRAST REASON FOR EXAM: Pain, trauma TECHNIQUE: Multiple contiguous axial images of the brain were obtained without the administration of intravenous contrast. Two-dimensional coronal and sagittal reformatted images were reconstructed. Low-dose imaging technique was utilized. COMPARISON: None FINDINGS: No evidence of acute intracranial hemorrhage, midline shift or mass effect. No definite CT evidence of acute territorial cortical infarction. No hydrocephalus. Mild chronic small-vessel ischemic changes. Calvarium is intact. Paranasal sinuses and mastoid air cells are clear. CT/Brain/Head without Contrast IMPRESSION: No acute intracranial abnormality. One or more dose reduction techniques were used (e.g., Automated exposure control, adjustment of the mA and/or kV according to patient size, use of iterative reconstruction technique). Reading Location: [facility] CC: Dr. Levy Bunrett MD; Dr. Richard Villatoro MD Lumber Trimmer: Signed Normal [facility] Emergency Department Summary on 09-01-2024 Emergency Department Summary [facility] Medical Records Department [address] [place] [address] Emergency Department Summary 09/01/24 MR#: [id number] Acct: [id number] Name: MILEY DUTTA Rep #: [id number] : 1965 59 From: Richard Villatoro MD PCP: Dr. Levy Burnett MD Status:REG ER Location: ED HPI History of Present Illness Chief Complaint: Neuro S/Sx Detail of Chief Complaint: Status post fall and hit her head on the ice on . Informant: patient and spouse/S.O. Onset/Context/Timing Onset: Today and Yesterday Context: Gradual Onset Timing: Continuous Current Severity: Mild Maximum Severity: Mild Narrative Narrative: Healthy 59-year-old female history of high cholesterol on a baby aspirin a day. she fell on the ice hit her head on the concrete. No LOC. States she had the back of her head that she thought she was okay later that day she developed a mild headache. She does take a baby aspirin a day. She works at [employer] they checked out thought she was okay. She denies any LOC. No vomiting. Yesterday thought her speech had mild changes to it. She says she has some mild neck pain but she has chronic neck pain. It is no worse since the fall. She denies any weakness to her upper or lower extremities. No trouble walking. Prior similar symptoms: No Recent Illness/Hospitalization : No PFSH PFSH Medical History Pain of left lower extremity Migraines ABRAHAM (stress urinary incontinence, female) Abnormal Pap smear of cervix Sleep apnea Hyperlipidemia Home Medications ???Medication ???Instructions ???Recorded ???Last Taken ???Type aspirin 81 mg tablet,delayed 81 mg PO DAILY 11/26/20 Unknown Hi story release (Adult Aspirin Regimen) rosuvastatin 20 mg tablet (Crestor) 40 mg PO DAILY 11/26/20 Unknown History ascorbate calcium (vitamin C) 500 500 mg PO DAILY 12/08/21 Unknown History mg tablet calcium carbonate (Calcium 600) 600 mg PO DAILY 12/08/21 Unknown H istory multivitamin 1 tab PO DAILY 12/08/21 Unknown Hi story potassium chloride 8 mEq 8 meq PO DAILY 12/08/21 Unknown Hi story capsule,extended release Allergy/AdvReac Type Severity Reaction Status Date / Time No Known Allergies Allergy Verified 09/01/24 09:20 Family History Father Myocardial infarction Brother Myocardial infarction CVA (cerebral vascular accident) Sister Ovarian cancer Mother Ovarian cancer Unknown Hyperlipidemia Surgical History History of colposcopy S/P Social History household members: spouse number of children: 3 current occupational status: employed current occupation: [employer] history of recent travel: No Smoking Status: Never smoker alcohol intake: never substance use type: does not use what type of physical activity do you participate in: walking seatbelt use: always do you feel safe at home: Yes additional social history: - Charlie BERRIOS ED ROS Narrative Denies recent illness. Headache post fall. Constitutional Constitutional ED: Denies chills or fever(s) Eyes Eyes: Denies blurry vision ENT ENT ED: Denies ear pain Cardiovascular Cardiovascular: Denies chest pain Respiratory/Chest Respiratory/Chest: Denies cough or dyspnea Gastrointestinal Gastrointestinal: Denies abdominal pain Genitourinary Genitourinary ED: Denies dysuria or hematuria Musculoskeletal Musculoskeletal: Denies arthralgias or back pain Integumentary Denies abscess or Abrasions Neurologic Neurologic: Reports headache(s); Denies paresthesias or weakness Psychiatric Psychiatric: Denies anxiety or depression Endocrine Endocrinology: Denies cold intolerance Hematologic/Lymphatic Hematologic/Lymphatic: Reports none Allergic/Immunologic Allergic/Immunologic ED: Denies mouth swelling, tongue swelling or urticaria EXAM Physical Exam Narrative Exam Narrative: Well-appearing 59-year-old female. Vital signs are stable afebrile. Initial blood pressure is elevated at 148/126. She does not look septic toxic or any distress. She is sitting upright in bed. at bedside. H EENT exam pupils round reactive light. Extra motions are intact. No facial droop. Normal speech. Face and scalp nontender no signs of trauma no hematoma. Neck nontender. Trachea midline. Lungs clear to auscultation bilaterally. Heart regular rhythm no murmur. Chest wall nontender ribs nontender. Abdomen soft nontender. Pelvic girdle intact. Moving all 4 extremities. 5 out of 5 drafter structural strength. Dorsi plantarflexion intact. Normal range of motion. Nontender. No deformity. Back nontender. Neurologic exam normal. NIH 0. No facial vasquez (more content not included)... Normal [facility] Spine Cervical without Contr ason 09-01-2024 Spine Cervical without Contras [facility] Imaging Services [address] [place], [place] [address] Spine Cervical without Contras MR#: [id number] Acct: [id number] Name: MILEY DUTTA Rep #: [id number] : 1965 F 59 From: Sean Jacome PCP: Dr. Levy Burnett MD Status: PRE ER Study: Spine Cervical without Contras Date of Exam: 0 09/01/24 Exam# [id number] Ordering Dr: Richard Villatoro MD PROCEDURE: CT cervical spine without IV contrast REASON FOR EXAM: Pain, trauma TECHNIQUE: Multiple contiguous axial images of the cervical spine were obtained without the administration of intravenous contrast. Two-dimensional coronal and sagittal reformatted images were reconstructed. Low-dose imaging technique was utilized. COMPARISON: 04/19/2024 FINDINGS: Vertebral body heights are maintained. Negative for acute fracture or traumatic subluxation. Mild/moderate degenerative changes from C5 - C7 including posterior disc osteophyte complexes and at least mild/moderate spinal stenosis. [id number]-tkahlebn bilateral bony foraminal narrowing at these levels also noted. Lung apices are clear. No paraspinal mass. CT/Spine Cervical without Contras IMPRESSION: 1. No acute osseous abnormality. 2. Degenerative changes from C5 - C7. One or more dose reduction techniques were used (e.g., Automated exposure control, adjustment of the mA and/or kV according to patient size, use of iterative reconstruction technique). Reading Location: [facility] CC: Dr. Levy Burnett MD; Dr. Richard Villatoro MD Lumber Trimmer: Signed Normal [facility] Cerv Spine Obl/Flex/Ext Comp on 04-19-2024 Cerv Spine Obl/Flex/Ext Comp [facility] Imaging Services [address] [place] [id number] Cerv Spine Obl/Flex/Ext Comp MR#: [id number] Acct: [id number] Name: MILEY DUTTA Rep #: [id number] : 1965 F 59 From: Tadeo Villalta MD PCP: Dr. Levy Burnett MD Status: REG CLI Study: Cerv Spine Obl/Flex/Ext Comp Date of Exam: Exam# [id number] Ordering [place]: [place] [id number] STUDY: X-RAY - CERVICAL SPINE REASON FOR EXAM: Female, 59 years old. Acute neck pain. TECHNIQUE: 7 view(s) of the cervical spine, including lateral flexion and extension views, were obtained. COMPARISON: None FINDINGS: Mild osteopenia. Normal anterior atlantoaxial articulation. Normal odontoid process. Normal cervical lordosis. Diffuse mild uncovertebral and facet sclerosis. Minimal intervertebral disc space narrowing at C5-6 without osteophytes. Limited flexion and extension with no abnormal motion. No neural foraminal encroachment. Normal soft tissues. RAD/Cerv Spine Obl/Flex/Ext Comp IMPRESSION: Osteopenia with limited flexion and extension and no abnormal motion. No other abnormality. Electronically Signed: Tadeo Villalta MD at 15:37 EDT Reading Location ID and State: [address] [place] [address] , Service support , CC: Dr. Levy Burnett MD Lumber Trimmer: Signed Normal [facility] Hips B/L min 2 views w/ Pelv luba 04-19-2024 Hips B/L min 2 views w/ Pelvis [facility] Imaging Services [address] [place], [place] [id number] Hips B/L min 2 views w/ Pelvis MR#: [id number] Acct: [id number] Name: MILEY DUTTA Rep #: [id number] : 1965 F 59 From: Tadeo Villalta MD PCP: Dr. Levy Burnett MD Status: REG CLI Study: Hips B/L min 2 views w/ Pelvis Date of Exam: 0 04/19/24 Exam# [id number] Ordering [place]: [place] [id number] STUDY: X-RAY - PELVIS AND BILATERAL HIPS REASON FOR EXAM: Female, 59 years old. Right hip pain. TECHNIQUE: AP view of the pelvis.? 2 views of the right hip, and 2 views of the left hip were obtained. COMPARISON: None. FINDINGS: Normal bowel gas pattern. Moderate amount of feces in the colon. Mild osteopenia. Normal bilateral iliac wings, sacroiliac joints and visualized sacrum. Normal bilateral superior and inferior pubic rami. Normal pubic symphysis. Normal bilateral ischial tuberosities. Mild arthrosis of both hips. RAD/Hips B/L min 2 views w/ Pelvis IMPRESSION: Osteopenia with mild arthrosis of both hips. No acute finding. Electronically Signed: Tadeo Villalta MD at 15:49 EDT Reading Location ID and State: [address] [place] [address] , Service support , CC: Dr. Levy Burnett MD Lumber Trimmer: Signed Normal [facility] Lumbar Spine 2 or 3 Viewson 04-19-2024 Lumbar Spine 2 or 3 Views [facility] Imaging Services [address] [place], [place] [id number] Lumbar Spine 2 or 3 Views MR#: [id number] Acct: [id number] Name: MILEY DUTTA Rep #: [id number] : 1965 F 59 From: Tadeo Villalta MD PCP: Dr. Levy Burnett MD Status: REG CLI Study: Lumbar Spine 2 or 3 Views Date of Exam: Exam# [id number] Ordering Dr: [place] [id number] STUDY: X-RAY - LUMBAR SPINE REASON FOR EXAM: Female, 59 years old. Low back pain. TECHNIQUE: 2 view(s) of the lumbar spine were obtained. COMPARISON: X-rays of the lumbar spine dated February 11, 2021 FINDINGS: Mild osteopenia. Normal lumbar lordosis. No scoliosis. 7 mm of anterolisthesis of L4 on L5, slightly increased since the prior study. Diffuse moderate lower thoracic and lumbosacral facet sclerosis. Mild intervertebral disc space narrowing at L2-3, L3-4 and L4-5 with small osteophytes, slightly progressed since the prior study. Normal soft tissues. RAD/Lumbar Spine 2 or 3 Views IMPRESSION: Osteopenia with slight progression of lower thoracic and lumbosacral spondylosis. No acute abnormality or erosive changes. Electronically Signed: Tadeo Villalta MD at 15:52 EDT , CC: Dr. Levy Burnett MD Lumber Trimmer: Signed Normal [facility] Hemoglobin A1con 04-16-2024 HbA1c (Bld) [Mass fraction] 6.4 % High 3.8-5.6 [facility] Comment on above: Order Comment: Order Date: 04/13/24 Order Info: [id number] - A1C Result Comment: Norm al < 5.7 % Prediabetic 5.7 - 6.4 % Diabetic >or= 6.5 % Please note range changes. Performed By: #### L 501.9985 #### [facility] Laboratory [address] [place], [address] Venous Duplex US, Unilateral on 04-05-2024 Venous Duplex US, Unilateral [facility] [address] [facility] [place] [address] Venous Duplex US, Unilateral 04/05/24 1427 MR#: [id number] Acct: [id number] Name: MILEY DUTTA Rep #: [id number] : 1965 59 From: Wm Hernández MD Attending Dr: Dr. Levy Burnett MD Status: REG Caryl SMITH Ordering Dr: Levy Burnett MD Date: 04/05/24 Location: [facility] Sex: F A Admitted: Reason For Study: Left leg edema Procedure LEFT This is a venous duplex using B-mode, color GSV is normal. flow and spectral Doppler. CFV is compressible, spontaneous, phasic, Exam performed in department. competent, and demonstrates normal Attempted to fax preliminary several times augmentation. and called office, unable to reach anyone to FV is compressible, spontaneous, phasic, leave a voicmail with. competent and demonstrates normal augmentation. POP V is compressible, spontaneous, phasic, competent and demonstrates normal augmentation. T/P Trunk is compressible. PTV is compressible. LT PerV is compressible. VL/Venous Duplex US, Unilateral Interpretation Summary Deep veins of the left lower extremity are patent and compressible segmentally. There is no evidence of left lower extremity deep vein thrombosis. Valvular competence appears intact within the proximal deep venous system on the left . The left great saphenous vein appears patent and compressible segmentally. Ordering Physician: Levy Burnett Referring Physician: Levy Burnett Performed By: Laurence Bragg, T 04/05/241921 Date Wm Hernández MD CC: Dr. Levy Burnett MD Date Dictated: 04/05/241426 Date Transcribed: 04/05/241921 Lumber Trimmer: Signed Normal [facility] SCRN MAMM (CAD)W/LEVY BILATo n 04-03-2024 SCRN MAMM (CAD)W/LEVY BILAT [facility] Imaging Services [address] [place] [address] SCRN MAMM (CAD)W/LEVY BILAT MR#: [id number] Acct: [id number] Name: MILEY DUTTA Rep #: [id number] : 1965 F 59 From: [place] MD PCP: Dr. Levy Burnett MD Status: [facility] Study: SCRN MAMM (CAD)W/LEVY BILAT Date of Exam: 03/25 Exam# [id number] Ordering [place]: [place] [id number] MAMMOGRAPHY - BILATERAL SCREENING REASON FOR EXAM: Female, 59 years old. Routine annual screening examination. PERTINENT HISTORY: Non-contributory. TECHNIQUE: Digital bilateral breast levy (3D mammographic acquisition) in the CC and MLO projections. 2-D mediolateral oblique (MLO) and craniocaudad (CC) views of both breasts were obtained. CAD: Full Field Digital Mammography with Computer Added Detection was performed. COMPARISON: Comparison is made with prior study dated December 08, 2021. FINDINGS: Breast Composition: The breasts are heterogeneously dense, which may obscure small masses. There are no dominant masses or suspicious calcifications. Stable bilateral sac containing axillary lymph nodes. No other significant abnormalities are identified. There has been no significant change since the prior study. BI/SCRN MAMM (CAD)W/LEVY BILAT IMPRESSION: Stable bilateral screening mammogram. Yearly follow-up mammogram recommended. (A) ASSESSMENT CATEGORY: BIRADS Category 2: Benign. A letter regarding these results will be sent to the patient by the facility within 30 days. Approximately 10% of breast cancers are not detected by mammography. A normal mammogram should not delay biopsy of a clinically suspicious abnormality. [id number] Electronically Signed: West Hoff MD at 8:52 EDT , CC: Dr. Levy Burnett MD Lumber Trimmer: Signed Normal [facility] Serum or plasma thyroid stim ulating hormone (TSH) measurement (units/volume)Ordered By: Levy Burnett on 11-22-2023 TSH Qn 1.60 uIU/mL 0.358-3.74 [facility] Basophil percentageOrdered B y: Tl Hodge on 11-18-2023 Cholesterol [Mass/Vol] 289 mg/dL <200 [facility] Comment on above: <200 mg/dL Desirable 200-240 mg/dL Borderline >240 mg/dL High Risk Triglyceride [Mass/Vol] 104 mg/dL <199 [facility] Comment on above: The drugs N-Acetylcy steine and Metamizole may falsely depress this assay.Serum Triglycerides Reference Interval Normal <150 mg/dL Borderline high 150 - 199 mg/dL High 200 - 499 mg/dL Very High > or = 500 mg/dL Laboratory - Chemistry and C hemistry - challengeOrdered By: Tl Hodge on 11-18-2023 Cholesterol in HDL [Mass/Vol] 56 mg/dL >40 [facility] Comment on above: The drugs N-Acetylcy steine and Metamizole may falsely depress this assay. Reference Range HDL <40 mg/dL Low HDL Cholesterol HDL >or= 60 mg/dL High HDL Cholesterol Cholesterol in LDL [Mass/Vol] 212 mg/dL 0-130 [facility] No Panel InformationOrdered By: Tl Hodge on 11-18-2023 VLDL Cholesterol 21 mg/dL 5-40 [facility] Absolute lymphocyte countOrd ered By: Jeanie Esquivel on 01-19-2023 Lymphocytes Auto (Unsp spec) [#/Vol] 2.17 10*3/uL 0.83-4.51 [facility] Basophil percentageOrdered B y: Jeanie Esquivel on 01-19-2023 Basophils/100 WBC (Bld) 0.9 % 0-1 [facility] Bilirubin [Mass/Vol] 0.40 mg/dL 0.20-1.00 [facility] Comment on above: For patients on eltr ombopag therapy, use of Dimension [place] TBIL is not recommended. Chloride [Moles/Vol] 111 mmol/L 98-107 [facility] Eosinophils/100 WBC (Bld) 3.7 % 0-5 [facility] Glucose [Mass/Vol] 109 mg/dL 74-106 [facility] Comment on above: Fasting Glucose resu lt from 100 to 125 mg/dL suggests IMPAIRED HOMEOSTASIS per A.D.A. criteria. Neutrophils (Bld) [#/Vol] 2.7 10*3/uL 2.0-7.7 [facility] Neutrophils/100 WBC (Bld) 48.9 % 47-70 [facility] Potassium [Moles/Vol] 3.9 mmol/L 3.5-5.1 [facility] Protein [Mass/Vol] 7.2 g/dL 6.4-8.2 [facility] Sodium [Moles/Vol] 138 mmol/L 136-145 [facility] WBC (Bld) [#/Vol] 5.5 10*3/uL 4.4-11.0 [facility] Blood erythrocytes count (nu mber/volume)Ordered By: Jeanie Esquivel on 01-19-2023 RBC (Bld) [#/Vol] 5.54 10*6/uL 4.2-5.4 [facility] Blood hemoglobin measurement (mass/volume)Ordered By: Jeanie Esquivel on 01-19-2023 Hemoglobin (Bld) [Mass/Vol] 14.2 g/dL 12.0-15.0 [facility] Blood lymphocytes/100 leukoc ytesOrdered By: Jeanie Esquivel on 01-19-2023 Lymphocytes/100 WBC (Bld) 39.7 % 19-41 [facility] Blood monocytes/100 leukocyt esOrdered By: Jeanie Esquivel on 01-19-2023 Monocytes/100 WBC (Bld) 6.4 % 0-10 [facility] Blood platelet mean volumeOr dered By: Jeanie Esquivel on 01-19-2023 Platelet mean volume (Bld) [Entitic vol] 9.3 fL 6.2-12.0 [facility] Determination of erythrocyte mean corpuscular volume (MCV)Ordered By: Jeanie Esquivel on 01-19-2023 MCV (RBC) [Entitic vol] 81.0 fL 81-99 [facility] Erythrocyte sedimentation ra teOrdered By: Jeanie Esquivel on 01-19-2023 ESR (Bld) [Velocity] 14 mm/h 0-30 [facility] Hematocrit Auto (Bld) [Volum e fraction]Ordered By: Jeanie Esquivel on 01-19-2023 Hematocrit (Bld) [Volume fraction] 44.9 % 37-47 [facility] Laboratory - Chemistry and C hemistry - challengeOrdered By: Jeanie Esquivel on 01-19-2023 ALP [Catalytic activity/Vol] 89 U/L 45-117 [facility] ALT [Catalytic activity/Vol] 42 U/L 13-56 [facility] CO2 [Moles/Vol] 22.0 mmol/L 21.0-32.0 [facility] Cobalamin (Vitamin B12) [Mass/Vol] 468 pg/mL 211-911 [facility] Free T4 [Mass/Vol] 1.03 ng/dL 0.76-1.46 [facility] Globulin (S) [Mass/Vol] 3.6 g/dL 2.2-4.2 [facility] Urea nitrogen/Creatinine [Mass ratio] 18.4 mg/mg 10-20 [facility] Laboratory - Hematology and Cell countsOrdered By: Jeanie Esquivel on 01-19-2023 Erythrocyte distribution width (RBC) [Entitic vol] 40.7 fL 35.1-43.9 [facility] Erythrocyte distribution width (RBC) [Ratio] 14.0 % 11.6-14.6 [facility] Immature granulocytes/100 WBC (Bld) 0.400 % 0.0-0.9 [facility] Comment on above: IG% - Immature Granu locytes (promyelocytes, myelocytes and metamyelocytes) > 1% indicates that a LEFT SHIFT is Present. MCH (RBC) [Entitic mass] 25.6 pg 27.0-32.0 [facility] Nucleated RBC/100 WBC (Bld) [Ratio] 0 % 0-5 [facility] MCHC Auto (RBC) [Mass/Vol]Or dered By: Jeanie Esquivel on 01-19-2023 MCHC (RBC) [Mass/Vol] 31.6 g/dL 32-36 [facility] No Panel InformationOrdered By: Jeanie Esquivel on 01-19-2023 Anti-Nuclear Antibody Screen Negative Negative [facility] Comment on above: Performed at: [address] [id number] Director: Giovany Ewing PhD, Phone: [phone] Estimated GFR (MDRD) Amer 92 mL/min >60 [facility] Comment on above: GFR Calc Estimated GFR (MDRD) Non-Af Amer 76 mL/min >60 [facility] Comment on above: Non- GFR Calc Free Triiodothyronine (T3) pg/dL 2.7 pg/mL 2.18-3.98 [facility] Thyroid Stimulating Hormone (TSH) 1.95 uIU/mL 0.358-3.74 [facility] Vitamin D 25-Hydroxy 28.5 ng/mL [facility] Comment on above: Vitamin D 25(OH) Sta tus Range Deficiency <20 ng/mL (50nmol/L) Insufficiency 20 - 30 ng/mL (50 - 75 nmol/L) Sufficiency 30 - 100 ng/mL (75 - 250 nmol/L) Toxicity >100 ng/mL (>250 nmol/L) Platelets bldOrdered By: Aisha sEquivel on 01-19-2023 Platelets (Bld) [#/Vol] 273 10*3/uL 150-450 [facility] Serum or plasma C reactive p rotein measurement (mass/volume)Ordered By: Jeanie Esquivel on 01-19-2023 CRP [Mass/Vol] mg/L 0.0-3.0 [facility] Comment on above: C-Reactive Protein ( CRP) provides useful information for thediagnosis, therapy and monitoring of inflammatory processesand associated diseases. For the evaluation of Relative Riskfor Cardiovascular Disease, a High Sensitivity CRP (HSCRP)should be ordered. Serum or plasma albumin marlon urement (mass/volume)Ordered By: Jeanie Esquivel on 01-19-2023 Albumin [Mass/Vol] 3.6 g/dL 3.2-5.0 [facility] Serum or plasma albumin/glob ulin mass ratioOrdered By: Jeanie Esquivel on 01-19-2023 Albumin/Globulin [Mass ratio] 1.0 {ratio} 0.9-2.4 [facility] Serum or plasma calcium marlon urement (mass/volume)Ordered By: Jeanie Esquivel on 01-19-2023 Calcium [Mass/Vol] 9.1 mg/dL 8.5-10.1 [facility] Serum or plasma cortisol ofe surement (mass/volume)Ordered By: Jeanie Esquivel on 01-19-2023 Cortisol [Mass/Vol] 10.90 ug/dL 3.44-22.45 [facility] Comment on above: Adult (AM) 5.27 - 22 .45 ug/dL Adult (PM) 3.44 - 16.76 ug/dLPlease note revised CORTISOL reference range effective 2019. Serum or plasma creatinine m easurement (mass/volume)Ordered By: Jeanie Esquivel on 01-19-2023 Creatinine [Mass/Vol] 0.82 mg/dL 0.55-1.02 [facility] Comment on above: The validity of the calculated GFR & GFRAA in patients over 70 years has not been determined. Clinical correlation is essential. Serum or plasma urea nitroge n measurement (mass/volume)Ordered By: Jeanie Esquivel on 01-19-2023 Urea nitrogen [Mass/Vol] 15 mg/dL 7-18 [facility] Serum rheumatoid factor dete ctionOrdered By: Jeanie Esquivel on 01-19-2023 Rheumatoid factor Ql (S) < 10.0 IU/mL <15 [facility] Thin prep Papanicolaou smear with manual screeningOrdered By: Jeanie Esquivel on 01-19-2023 Thin prep Papanicolaou smear with manual screening 24 U/L 15-37 [facility] Thin prep Papanicolaou smear with manual screening 5 5-15 [facility] Whole blood hemoglobin A1c/t otal hemoglobin ratio (mass fraction)Ordered By: Jeanie Esquivel on 01-19-2023 HbA1c (Bld) [Mass fraction] 6.2 % 3.8-5.6 [facility] Comment on above: Normal < 5.7 % Predi abetic 5.7 - 6.4 % Diabetic >or= 6.5 % Please note range changes. Basophil percentageon 2021 Bilirubin [Mass/Vol] 0.40 mg/dL 0.20-1.00 [facility] Work Phone: Comment on above: For patients on eltr ombopag therapy, use of Dimension [place] TBIL is not recommended. Chloride [Moles/Vol] 106 mmol/L 98-[address] [facility] Work Phone: Cholesterol [Mass/Vol] 221 mg/dL <200 [facility] Work Phone: Comment on above: <200 mg/dL Desirable 200-240 mg/dL Borderline >240 mg/dL High Risk Glucose [Mass/Vol] 98 mg/dL 74-106 [facility] Work Phone: Potassium [Moles/Vol] 4.3 mmol/L 3.5-5.1 [facility] Work Phone: Protein [Mass/Vol] 7.1 g/dL 6.4-8.2 [facility] Work Phone: [phone] Sodium [Moles/Vol] 140 mmol/L 136-145 [facility] Work Phone: Triglyceride [Mass/Vol] 85 mg/dL <199 [facility] Work Phone: [phone] Comment on above: The drugs N-Acetylcy steine and Metamizole may falsely depress this assay.Serum Triglycerides Reference Interval Normal <150 mg/dL Borderline high 150 - 199 mg/dL High 200 - 499 mg/dL Very High > or = 500 mg/dL Laboratory - Chemistry and C hemistry - challengeon 06-22-2022 ALP [Catalytic activity/Vol] 89 U/L 45-117 [facility] Work Phone: ALT [Catalytic activity/Vol] 45 U/L 13-56 [facility] Work Phone: [phone] CO2 [Moles/Vol] 26.0 mmol/L 21.0-32.0 [facility] Work Phone: [phone] Globulin (S) [Mass/Vol] 3.2 g/dL 2.2-4.2 [facility] Work Phone: [phone] Urea nitrogen/Creatinine [Mass ratio] 17.2 mg/mg 10-20 [facility] Work Phone: No Panel Informationon 06-22 Estimated GFR (MDRD) Amer 101 mL/min >60 [facility] Work Phone: Comment on above: GFR Calc Estimated GFR (MDRD) Non-Af Amer 84 mL/min >60 [facility] Work Phone: Comment on above: Non- GFR Calc Serum or plasma albumin marlon urement (mass/volume)on 06-22-2022 Albumin [Mass/Vol] 3.9 g/dL 3.2-5.0 [facility] Work Phone: Serum or plasma albumin/glob ulin mass ratioon 06-22-2022 Albumin/Globulin [Mass ratio] 1.2 {ratio} 0.9-2.4 [facility] Work Phone: Serum or plasma calcium marlon urement (mass/volume)on 06-22-2022 Calcium [Mass/Vol] 8.7 mg/dL 8.5-10.1 [facility] Work Phone: Serum or plasma cholesterol in HDL measurement (mass/volume)on 06-22-2022 Cholesterol in HDL [Mass/Vol] 54 mg/dL >40 [facility] Work Phone: Comment on above: The drugs N-Acetylcy steine and Metamizole may falsely depress this assay. Reference Range HDL <40 mg/dL Low HDL Cholesterol HDL >or= 60 mg/dL High HDL Cholesterol Serum or plasma cholesterol in VLDL measurement (mass/volume)on 06-22-2022 Cholesterol in VLDL [Mass/Vol] 17 mg/dL 5-40 [facility] Work Phone: Serum or plasma creatinine m easurement (mass/volume)on 06-22-2022 Creatinine [Mass/Vol] 0.76 mg/dL 0.55-1.02 [facility] Work Phone: Comment on above: The validity of the calculated GFR & GFRAA in patients over 70 years has not been determined. Clinical correlation is essential. Serum or plasma low density lipoprotein (LDL) cholesterol measurement (mass/volume)on 06-22-2022 Cholesterol in LDL [Mass/Vol] 150 mg/dL 0-130 [facility] Work Phone: Serum or plasma urea nitroge n measurement (mass/volume)on 06-22-2022 Urea nitrogen [Mass/Vol] 13 mg/dL 7-18 [facility] Work Phone: Thin prep Papanicolaou smear with manual screeningon 06-22-2022 Thin prep Papanicolaou smear with manual screening 22 U/L 15-37 [facility] Work Phone: Thin prep Papanicolaou smear with manual screening 8 5-15 [facility] Work Phone: No Panel Informationon 09-04 POC SARS CoV-2 Antigen Negative [facility] Work Phone: MG Breast Tomosynthesis Scr Blon 06-17-2020 MG Breast Tomosynthesis Scr Bl Patient Name: MILEY DUTTA Mammography Exam Date/Time 06/17/2020 11:42:24 EST Exam MG Breast Tomosynthesis BI Scr Ordering Physician DO SEGURA MEGHAN J. Accession Number [id number] CPT4 Codes 56420 (MG Breast Tomosynthesis Scr Bl), 87955 (MG MAMMO 2D SCREENING) Reason For Exam screening Report TIME SINCE LAST MAMMOGRAM: Last mammogram was performed 1 year and 1 month ago. REASON FOR EXAM: screening, asymptomatic. PROCEDURE: MG BREAST TOMOSYNTHESIS BL SCR: JUNE 17, 2020 - 2D/3D Procedure 3D Bilateral CC and MLO view(s) were taken. 2D Bilateral CC and MLO view(s) were taken. Prior study comparison: May 07, 2019, bilateral MG breast tomosynthesis bl scr performed at [facility]. September 15, 2016, bilateral MG mammogram digital screening performed at [facility]. September 18, 2014, bilateral MG mammogram digital screening performed at [facility]. TISSUE DENSITY: BIRADS B - There are scattered fibroglandular densities. . FINDINGS: No suspicious masses, architectural distortions or suspiciously clustered microcalcifications are identified. There is no evidence of skin thickening or nipple retraction. There are no significant changes when compared with prior studies. Markings on images: BB's = Nipples; skin lesions Open [place] = Palpable Line = Scar 2D digital mammography and tomosynthesis imaging were performed and reviewed with CAD. ASSESSMENT: Category 1 Negative RECOMMENDATION: Routine screening mammogram of both breasts in 1 year. . Report Dictated on Cancer Risk Assessment: This risk assessment is based on patient provided information collected in a risk survey taken at the time of this examination. Lifetime breast cancer risk: 11.55% - If greater than or equal to 20%, consider annual mammogram and annual screening Breast MRI or follow up in high risk clinic. Is the patient at elevated risk based on the HBOC criteria? Yes (Hereditary Breast and Ovarian Cancer) - If yes, consider genetic counseling and testing with high risk follow up. HNPCC mutation risk (Aceves Syndrome): 1.4% - if greater than or equal to 5%, consider genetic counseling, testing and screening colonoscopy. Final Signed Date and Time: 06/18/2020 9:16 am Signed by: MD SUÁREZ LAURA Normal [facility] LEVY DIGITAL SCREEN FRANCIA Caba 05-07-2019 Patient Name: MILEY RASHID ---Mammography--- Exam Date/Time 05/07/2019 09:25:40 EDT Exam MG Breast Tomosynthesis BI Scr Ordering Physician DO SEGURA MEGHAN J. Accession Number [id number] CPT4 Codes 34413 (MG Breast Tomosynthesis Scr Bl), 40456 (MG MAMMO 2D SCREENING) Reason For Exam screening Report PATIENT HISTORY: Patient is postmenopausal. Family history of ovarian cancer at age 68 in mother, ovarian cancer at age 49 in sister. No Hormone Replacement Therapy Patient has never smoked. Patient's BMI is 33.7. TIME SINCE LAST MAMMOGRAM: Last mammogram was performed 2 years and 8 months ago. REASON FOR EXAM: screening, asymptomatic. PROCEDURE: MG BREAST TOMOSYNTHESIS BL SCR: MAY 07, 2019 - 2D/3D Procedure 3D Bilateral CC and MLO view(s) were taken. 2D Bilateral CC and MLO view(s) were taken. Prior study comparison: September 15, 2016, bilateral MG mammogram digital screening performed at [facility]. September 18, 2014, bilateral MG mammogram digital screening performed at [facility]. TISSUE DENSITY: There are scattered fibroglandular densities. . FINDINGS: No suspicious masses, architectural distortions or suspiciously clustered microcalcifications are identified. There is no evidence of skin thickening or nipple retraction. There are no significant changes when compared with prior studies. Markings on images: BB's = Nipples; skin lesions [place] = Palpable Line = Scar 2D digital mammography and tomosynthesis imaging were performed and reviewed with CAD. ASSESSMENT: Category 1 Negative No mammographic evidence of malignancy. RECOMMENDATION: Routine screening mammogram of both breasts in 1 year. . Report Dictated on Cancer Risk Assessment: This risk assessment is based on patient provided information collected in a risk survey taken at the time of this examination. Lifetime breast cancer risk: 11.1% - If greater than or equal to 20%, consider annual mammogram and annual screening Breast MRI or follow up in high risk clinic. Is the patient at elevated risk based on the HBOC criteria? Yes (Hereditary Breast and Ovarian Cancer) - If yes, consider genetic counseling and testing with high risk follow up. HNPCC mutation risk (Aceves Syndrome): 1.4% - if greater than or equal to 5%, consider genetic counseling, testing and screening colonoscopy. --- Final --- Signed Date and Time: 05/07/2019 11:12 am Signed by: MD ANNA, [facility] Incoming Radiology Results From [facility] - 05/07/2019 11:25 AM EDT Patient Name: MILEY SAAVEDRA ---Mammography--- Exam Date/Time 05/07/2019 09:25:40 EDT Exam MG Breast Tomosynthesis BI Scr Ordering Physician DO SEGURA MEGHAN J. Accession Number [id number] CPT4 Codes 75794 (MG Breast Tomosynthesis Scr Bl), 21142 (MG MAMMO 2D SCREENING) Reason For Exam screening Report PATIENT HISTORY: Patient is postmenopausal. Family history of ovarian cancer at age 68 in mother, ovarian cancer at age 49 in sister. No Hormone Replacement Therapy Patient has never smoked. Patient's BMI is 33.7. TIME SINCE LAST MAMMOGRAM: Last mammogram was performed 2 years and 8 months ago. REASON FOR EXAM: screening, asymptomatic. PROCEDURE: MG BREAST TOMOSYNTHESIS BL SCR: MAY 07, 2019 - 2D/3D Procedure 3D Bilateral CC and MLO view(s) were taken. 2D Bilateral CC and MLO view(s) were taken. Prior study comparison: September 15, 2016, bilateral MG mammogram digital screening performed at [facility]. September 18, 2014, bilateral MG mammogram digital screening performed at [facility]. TISSUE DENSITY: There are scattered fibroglandular densities. . FINDINGS: No suspicious masses, architectural distortions or suspiciously clustered microcalcifications are identified. There is no evidence of skin thickening or nipple retraction. There are no significant changes when compared with prior studies. Markings on images: BB's = Nipples; skin lesions [place] = Palpable Line = Scar 2D digital mammography and tomosynthesis imaging were performed and reviewed with CAD. ASSESSMENT: Category 1 Negative No mammographic evidence of malignancy. RECOMMENDATION: Routine screening mammogram of both breasts in 1 year. . Report Dictated on Cancer Risk Assessment: This risk assessment is based on patient provided information collected in a risk survey taken at the time of this examination. Lifetime breast cancer risk: 11.1% - If greater than or equal to 20%, consider annual mammogram and annual screening Breast MRI or follow up in high risk clinic. Is the patient at elevated risk based on the HBOC criteria? Yes (Hereditary Breast and Ovarian Cancer) - If yes, consider genetic counseling and testing with high risk follow up. HNPCC mutation risk (Aceves Syndrome): 1.4% - if greater than or equal to 5%, consider genetic counseling, testing and screening colonoscopy. --- Final --- Signed Date and Time: 05/07/2019 11:12 am Signed by: MD ANNA, RAYSHAWN [facility], [facility] ENT Physician Progress Louis mendoza 05-01-2019 AMB ENT Physician Progress Note Chief Complaint Miley is here for ear cleaning. History of Present Illness She has a history of wax. She is here for cleaning. Review of Systems Unremarkable other than her ears Physical Exam Vitals & Measurements Systolic Blood Pressure: 114 mmHg (05/01/19 15:58:00) Diastolic Blood Pressure: 80 mmHg (05/01/19 15:58:00) Height/Length Measured: 160 cm (05/01/19 15:58:00) Weight Measured: 86 kg (05/01/19 15:58:00) Body Mass Index Measured: 33.59 kg/m2 (05/01/19 15:58:00) Depression Screening Scores Initial Depression Screen Score: 0 (05/01/19 15:58:00) Fall Risk Assessment Is the patient ambulatory (mobile): Yes (05/01/19 15:58:00) Have you had a fall within the past: No (05/01/19 15:58:00) Have you had 2 or more falls in the past: No (05/01/19 15:58:00) Examination of the right ear is unremarkable. There are no lesions of the ear canal, middle ear or tympanic membrane. Evaluation left ear reveals wax. This was instrumented cleaned. Once it was removed the middle ear Dermer healthy. Assessment/Plan 1. Hearing loss of left ear due to cerumen impaction H61.22 Ear was cleaned. I will see her back as needed Ordered: AMB Remove Impctd Cerumen w/instrmnt unilat [id number], 05/01/2019 16:17:00 EDT, Hearing loss of left ear due to cerumen impaction, 1 Problem List/Past Medical History Ongoing H/O: migraine High cholesterol Historical No qualifying data Procedure/Surgical History COLONOSCOPY (08/12/2017), Colonoscopy, flexible; with biopsy, single or multiple (08/12/2017), Angiocardiography of Left Heart Structures (12/06/2011), Coronary Arteriography Using Two Catheters (12/06/2011), Left Heart Cardiac Catheterization (12/06/2011), Injection or Infusion of Other Therapeutic or Prophylactic Substance (12/05/2011), HOSPITAL OBSERVATION SERVICE, PER HOUR (12/04/2011). Medications aspirin 81 mg oral enteric coated tablet, 81 mg= 1 tabs, ORAL, DAILY WITH BREAKFAST Crestor 40 mg oral tablet, 40 mg= 1 tabs, ORAL, DAILY multivitamin, 1 tabs, ORAL, DAILY Allergies No Known Allergies Social History Alcohol - Denies Alcohol Use Substance Abuse - Denies Substance Abuse Tobacco Never (less than 100 in lifetime) Tobacco Use:. Family History Heart attack....: Father, Brother and Brother. Ovarian cancer..: Mother and Sister. Normal [facility] Office Visit (Family Medicin e)on 02-14-2018 Office Visit (Family Medicine) Chief ComplaintUrgent Care f/u from this past weekend for severe headache. History of Present IllnessPt is a 52 y/o female presenting today c/o severe SOSA onset 2 weeks ago. Pt notes going to urgent care for the Sx on 02/04/18 due to severity of pain. Has had some recurrence, and significant to complete relief with Rizatriptan. States the SOSA at today's visit is a 3 on a scale of 10. Previously had improvement of headaches after stopping green tea consumption.Also c/o chest pain, left arm weakness, and acid regurgitation on 02/09/18 (has since been relieved) while seated and at rest, lasted several seconds, resolved completely. Denies exertional symptoms or exacerbation.Pt notes an adverse reaction to Rosuvastatin muscle cramping at 40 mg, takes half a tablet (20 mg) and tolerates this fairly well. Also continues Zetia. Review of SystemsConstitutional: as noted in HPI, no chills and no fever. Cardiovascular: chest pain, but as noted in HPI and no lower extremity edema. Respiratory: no cough, no shortness of breath during exertion, no shortness of breath at rest and no wheezing. Gastrointestinal: no abdominal pain, no diarrhea, no melena, no nausea and no vomiting. Musculoskeletal: no back pain. Integumentary: no rashes. Neurological: headache and numbness, but as noted in HPI, no dizziness, no limb weakness and no tingling. Active Problems Bronchitis with bronchospasm (490) (J20.9) Elevated hemoglobin A1c (790.29) (R73.09) Head ache (784.0) (R51) Headache (784.0) (R51) Hyperlipidemia (272.4) (E78.5) Migraine headache without aura (346.10) (G43.009) New onset headache (784.0) (R51) Past Medical History History of Benign essential HTN (401.1) (I10) History of headache (V13.89) (Z87.898) History of hyperlipidemia (V12.29) (Z86.39) Surgical History History of Section 1994 and 1996 Family History Family history of FHx: ovarian cancer (V16.41) (Z80.41) Family history of Family history of myocardial infarction (V17.3) (Z82.49) Family history of High cholesterol Family history of FHx: ovarian cancer (V16.41) (Z80.41) Family history of Family history of cerebral aneurysm (V17.1) (Z82.49) Family history of myocardial infarction (V17.3) (Z82.49) FHx: early MS (V17.3) (Z82.49) Social History Never a smoker No alcohol use Allergies No Known Drug Allergies Recorded By: Monika Foster; 10/21/2016 10:17:33 AM No Known Food Allergies Recorded By: Cammy Forrest; 02/14/2018 8:40:22 AM Current Meds Excedrin Migraine 250-250-65 MG Oral Tablet; TAKE 1 TABLET 3 TIMES DAILY ASNEEDED;Therapy: 26May2017 to Recorded Dispense: 0 Days ; #: Sufficient Tablet; Refill: 0;For: Head ache; FRANCHESCA = N; Record; Last Updated By: Maggie Lee; 02/14/2018 8:46:42 AM Aspir-81 81 MG Oral Tablet Delayed Release; TAKE 1 TABLET DAILY DIRECTED;Therapy: 26May2017 to Recorded Dispense: 0 Days ; #: Sufficient Tablet Delayed Release; Refill: 0;For: Health Maintenance; FRANCHESCA = N; Record; Last Updated By: Maggie Lee; 06/24/2017 9:56:24 AM Ezetimibe 10 MG Oral Tablet; TAKE 1 TABLET Bedtime;Therapy: 21Jun2017 to (Evaluate:16Jun2018) Requested for: 24Jun2017; LastRx:21Jun2017 Ordered Rx By: Bhumika Kevin; Dispense: 90 Days ; #:90 Tablet; Refill: 3;For: Hyperlipidemia; FRANCHESCA = N; Verified Transmission to [facility]; Last Updated By: Maggie Lee; 02/14/2018 9:39:01 AM Rosuvastatin Calcium 40 MG Oral Tablet; TAKE 1 TABLET DAILY AT BEDTIME;Therapy: 25Jun2016 to (Evaluate:16Jun2018) Requested for: [id number]; LastRx:21Jun2017 Ordered Rx By: Bhumika Kevin; Dispense: 90 Days ; #:90 Tablet; Refill: 3;For: Hyperlipidemia; FRANCHESCA = N; Verified Transmission to [facility]; Last Updated By: Maggie Lee; 02/14/2018 9:39:03 AM Rizatriptan Benzoate 5 MG Oral Tablet; TAKE 1 TABLET AT ONSET OF HEADACHE.MAY REPEAT EVERY 2 HOURS NEEDED. MAXIMUM 3 TABLETS IN 24 HOURS;Therapy: 72Cwd3312 to (Last Rx:24Jun2017) Requested for: [id number] Ordered Rx By: Charlie Pan; Dispense: 0 Days ; #:8 Tablet; Refill: 1;For: Migraine headache without aura; FRANCHESCA = N; Verified Transmission to [id number]; Last Updated By: Ulises Dimas; 02/14/2018 9:38:58 AM Rosuvastatin Calcium 10 MG Oral Tablet;Therapy: 62Wmo2525 to Recorded Rx By: KATHREYN; Dispense: 30 Days ; #:30 TABS; Refill: 0; FRANCHESCA = N; Record; Last Updated By: Teetee Gray; 02/14/2018 8:39:44 AM Vitals Vital Signs Recorded: 30Jsd1269 08:80LQJlgurjshuvl61.4 FHeart Xcri83Tymoquer970Yuclfr sdp36Blhwqi7 ft 3 yhTfkacd464 lb 8 ozBMI Wfedhxoorb08.33BSA Calculated1.86O2 Pnoifngfjm64 Physical ExamGeneral: Well Developed-Well Nourished, NAD, AlertANDOriented.Head and Face: Normocephalic, atraumatic, no swelling, ecchymoses, tenderness, or erythema.Eyes: PERRL, EOMI, no icterus, injection, or edema.Pulmonary: No respiratory distress.Neuro: No tremor, ataxia, facial droop, dysarthria.Integumentar y: Warm, dry, normal turgor, no rash or lesion.Psychiatric: Normal mood and affect. Diagnoses/Problems Migraine headache without aura (346.10) (G43.009) MR studies as orderd by neurology. Continue triptan for now. Follow-up with neurology. Myalgia (729.1) (M79.1) Reduce rosuvastatin to 20 mg, check CPK and kidney function. Chest pain, atypical (786.59) (R07.89) At rest, accompanied by regurgitation, suspect ELSY. FMHx early MS, PMHx HLD, may consider EKG and stress testing. Go to ED if symptoms recur. Elevated hemoglobin A1c (790.29) (R73.09) Recheck A1c. OrdersHead ache Stop: Excedrin Migraine 250-250-65 MG Oral Tablet Dispense: 0 Days ; #: Sufficient Tablet; Refill: 0;For: Head ache; FRANCHESCA = N; Record; Last Updated By: Cammy Forrest; 02/14/2018 8:46:42 AMUnlinked Stop: Rosuvastatin Calcium 10 MG Oral Tablet Rx By: KATHERYN; Dispense: 30 Days ; #:30 TABS; Refill: 0; FRANCHESCA = N; Record; Last Updated By: Cammy Forrest; 02/14/2018 8:39:44 AM Patient Discussion/SummaryRecom mend to maintain adequate hydration, avoid caffeine and MSG or other triggers. A headache journal is often useful to identify headache triggers. Please schedule a follow-up visit with your neurologist.For assistance with scheduling referrals, consultations, or laboratory or radiology tests, please contact the patient tax advisorpily Du at . Please review prescription inserts for possible adverse effects; call or return with any questions or concern. Return after testing or consultation to review results and recommendations, if symptoms worsen or fail to improve, or if you have any questions or concerns. For non-emergencies, you may call the office at [phone]. For emergencies, call or go to the nearest Emergency Department. Results of tests done through [facility] will be available on the patient portal at [email or web address] or on your Android or iOS (iPhone, iPad) device using the [employer] alexis available free of charge in your device's alexis store. Results done through [facility] will be available through [facility]'s patient portal. By signing my name below, Melyssa Whitney Scribe, attest that this documentation has been prepared under the direction and in the presence of Dr. Bhumika Kevin. All medical record entries made by the [facility] were at my direction and personally dictated by me. I have reviewed the chart and agree that the record accurately reflects my personal performance of the history, physical exam, discussion and plan. (Dr. Bhumika Kevin). End of Encounter MedsAspir-81 81 MG Oral Tablet Delayed Release; TAKE 1 TABLET DAILY DIRECTED;Therapy: 26May2017 to RecordedEzetimibe 10 MG Oral Tablet; TAKE 1 TABLET Bedtime;Therapy: 21Jun2017 to (Evaluate:17Ncd0574) Requested for: 86Xeu1122; LastRx:[id number] OrderedRizatriptan Benzoate 5 MG Oral Tablet (Maxalt); TAKE 1 TABLET AT ONSET OFHEADACHE. MAY REPEAT EVERY 2 HOURS NEEDED. MAXIMUM 3 TABLETS IN 24HOURS;Therapy: 56Sws4088 to (Last Rx:[id number]) Requested for: [id number] OrderedRosuvastatin Calcium 20 MG Oral Tablet; TAKE 1 TABLET Bedtime;Therapy: 25Jun2016 to (Evaluate:57Rom2139) Requested for: [id number]; LastRx:[id number] Ordered Signatures Electronically signed by : JELANI Tripathi; Feb 14 2018 9:39AM EST (Author) Electronically signed by : Bhumika Kevin DO; Feb 14 2018 9:49AM EST (Author) Normal [facility] Office Visit (Urgent Care)on 02-04-2018 Office Visit (Urgent Care) Chief Complaint Headache History of Present Bftnjho30-bvpa-jea female presents for a migraine and medication refills. Patient states she has a long-standing history of migraines. She's been seen by her primary care provider as well as been seen by a neurologist. She has had a CT done in the past. She states she was recommended to have an MRI but this was not completed. She states that she is out of her triptan medication. 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 She states that yesterday at work he was extremely stressful but she felt okay during that time. After arriving at home she went to a constitution party and ate a lot of food which may have contained MSG. She also states she has not taken and as much water as she normally does. She developed a headache last night. States it's in the left side of her head and radiates from her eye back along to the back of her head. There is no visual deficit. She has no preceding aura. States she has some nausea but no vomiting. No weakness on either side of her body. This was not acute in onset. It was not the worst headache of her life. She was able take her last tablet of her triptan last night prior to bed. This morning she took some Excedrin but states that did not alleviate her pain.ROS: 7 body systems reviewed and otherwise negative unless dictated in the history of present illness. Review of SystemsConstitutional: as noted in HPI. Active Problems Bronchitis with bronchospasm (490) (J20.9) Elevated hemoglobin A1c (790.29) (R73.09) Head ache (784.0) (R51) Hyperlipidemia (272.4) (E78.5) Migraine headache without aura (346.10) (G43.009) New onset headache (784.0) (R51) Past Medical History History of Benign essential HTN (401.1) (I10) History of headache (V13.89) (Z87.898) History of hyperlipidemia (V12.29) (Z86.39) Surgical History History of Section 1994 and 1996 Family History Family history of FHx: ovarian cancer (V16.41) (Z80.41) Family history of Family history of myocardial infarction (V17.3) (Z82.49) Family history of High cholesterol Family history of FHx: ovarian cancer (V16.41) (Z80.41) Family history of Family history of cerebral aneurysm (V17.1) (Z82.49) Family history of myocardial infarction (V17.3) (Z82.49) FHx: early MS (V17.3) (Z82.49) Social History Never a smoker No alcohol use Allergies No Known Drug Allergies Recorded By: Monika Foster; 10/21/2016 10:17:33 AM Current Meds Excedrin Migraine 250-250-65 MG Oral Tablet; TAKE 1 TABLET 3 TIMES DAILY ASNEEDED;Therapy: 26May2017 to Recorded Dispense: 0 Days ; #: Sufficient Tablet; Refill: 0;For: Head ache; FRANCHESCA = N; Record; Last Updated By: Maggie Lee; 06/24/2017 9:56:24 AM Aspir-81 81 MG Oral Tablet Delayed Release; TAKE 1 TABLET DAILY DIRECTED;Therapy: 26May2017 to Recorded Dispense: 0 Days ; #: Sufficient Tablet Delayed Release; Refill: 0;For: Health Maintenance; FRANCHESCA = N; Record; Last Updated By: Maggie Lee; 06/24/2017 9:56:24 AM Ezetimibe 10 MG Oral Tablet; TAKE 1 TABLET Bedtime;Therapy: 21Jun2017 to (Evaluate:16Jun2018) Requested for: 24Jun2017; LastRx:21Jun2017 Ordered Rx By: Bhumika Kevin; Dispense: 90 Days ; #:90 Tablet; Refill: 3;For: Hyperlipidemia; FRANCHESCA = N; Verified Transmission to [facility]; Last Updated By: Maggie Lee; 06/24/2017 9:56:24 AM Rosuvastatin Calcium 40 MG Oral Tablet; TAKE 1 TABLET DAILY AT BEDTIME;Therapy: 25Jun2016 to (Evaluate:16Jun2018) Requested for: 24Jun2017; LastRx:21Jun2017 Ordered Rx By: Bhumika Kevin; Dispense: 90 Days ; #:90 Tablet; Refill: 3;For: Hyperlipidemia; FRANCHESCA = N; Verified Transmission to [facility]; Last Updated By: Maggie Lee; 06/24/2017 9:56:24 AM Rizatriptan Benzoate 5 MG Oral Tablet; TAKE 1 TABLET AT ONSET OF HEADACHE.MAY REPEAT EVERY 2 HOURS NEEDED. MAXIMUM 3 TABLETS IN 24 HOURS;Therapy: 04Yyh4416 to (Last Rx:24Jun2017) Requested for: 24Jun2017 Ordered Rx By: Charlie Pan; Dispense: 0 Days ; #:8 Tablet; Refill: 1;For: Migraine headache without aura; FRANCHESCA = N; Verified Transmission to [id number]; Last Updated By: Ulises Dimas; 06/24/2017 10:14:32 AM Rosuvastatin Calcium 10 MG Oral Tablet;Therapy: 76Zhq2743 to Recorded Rx By: KATHERYN; Dispense: 30 Days ; #:30 TABS; Refill: 0; FRANCHESCA = N; Record; Last Updated By: Teetee Gray; 02/04/2018 12:17:42 PM Vitals Vital Signs Recorded: 61Zio3565 12:18JQNldexjdtwou97 FHeart Bpmx54Ccxrztjsbij51Yumg eyxq214Yyobvxpnj09Frjbo t180 lb BMI Ektjepyanj81.89BSA Calculated1.85O2 Kzquknvizl27Nmds Scale7 Physical ExamConstitutional: vital signs reviewed. Well developed, well nourished. patient alert and patient without distress. Gen: Alert and oriented x 3, not acutely ill or toxic appearingHEENT: Head is NC and AT. No facial asymmetry. Pupils are equal and reactive to light.EOMI. Patent nares. Oral pharynx is clear. Voice clearNeck: suppleHeart: regular rate and rhythm without murmurLungs: clear to auscultation and respirations are unlaboredSkin: warm and dryNeuro: ambulatory without assist.CN II-XII intact. Mentation clear. Answering questions quickly and appropriately. Diagnoses/Problems Headache (784.0) (R51) OrdersHeadache Start: Rizatriptan Benzoate 5 MG Oral Tablet; TAKE 1 TABLET AT ONSET OFHEADACHE. MAY REPEAT EVERY 2 HOURS NEEDED. MAXIMUM 3 TABLETS IN 24HOURS Rx By: Teetee Gary; Dispense: 0 Days ; #:8 Tablet; Refill: 0;For: Headache; FRANCHESCA = N; Verified Transmission to [facility]; Last Updated By: Ulises Dimas; 02/04/2018 12:20:25 PM Provider Pcwxraoxaqy03-vlda-gpk female presents with a headache. She states she has a history of migraines and has seen a neurologist. I did review prior documentation she was seen by neurology at the end of 2016 (orders for MR although pt opted to not complete due to insurance/cost). She has used triptan successfully in the past. There are no atypical features to her headache today. No focal deficits on exam. She'll be given a refill on 8 tablets of her triptan. I stressed the need to follow-up with her primary care provider as well as her neurologist for further therapy Patient Discussion/SummaryToday you were seen by Dr Gray Please see your primary care physician in 3 days. Please take medication as instructed. Rest for the remainder of the dayRecommend follow-up with neurologist as well as primary care provider. End of Encounter MedsAspir-81 81 MG Oral Tablet Delayed Release; TAKE 1 TABLET DAILY DIRECTED;Therapy: 26May2017 to RecordedExcedrin Migraine 250-250-65 MG Oral Tablet; TAKE 1 TABLET 3 TIMES DAILY ASNEEDED;Therapy: 26May2017 to RecordedEzetimibe 10 MG Oral Tablet; TAKE 1 TABLET Bedtime;Therapy: 21Jun2017 to (Evaluate:16Jun2018) Requested for: [id number]; LastRx:21Jun2017 OrderedRizatriptan Benzoate 5 MG Oral Tablet (Maxalt); TAKE 1 TABLET AT ONSET OFHEADACHE. MAY REPEAT EVERY 2 HOURS NEEDED. MAXIMUM 3 TABLETS IN 24HOURS;Therapy: 21Wci7829 to (Last Rx:[id number]) Requested for: 53Rmw2460 OrderedRizatriptan Benzoate 5 MG Oral Tablet; TAKE 1 TABLET AT ONSET OF HEADACHE.MAY REPEAT EVERY 2 HOURS NEEDED. MAXIMUM 3 TABLETS IN 24 HOURS;Therapy: 28Scj2461 to (Last Rx:[id number]) Requested for: 42Fav4378 OrderedRosuvastatin Calcium 10 MG Oral Tablet;Therapy: 99Kvy4676 to RecordedRosuvastatin Calcium 40 MG Oral Tablet; TAKE 1 TABLET DAILY AT BEDTIME;Therapy: 03Hfc1153 to (Evaluate:16Jun2018) Requested for: 46Ycz4299; LastRx:21Jun2017 Ordered Normal [facility] Vital Signs Date Time Vital Sign Value Performing Clinician Lenny starks 04-05-2022 07:14-0400 Body temperature 98.3 [degF] GENERAL MATCHER-Caryl Sargent Work Phone: [facility] Work Phone: 04-05-2022 07:14-0400 Diastolic blood pressure 62 mm[Hg] CHRISTOPH Sargent Work Phone: [facility] Work Phone: 04-05-2022 07:14-0400 Heart rate 78 /min CHRISTOPH Sargent Work Phone: [facility] Work Phone: 04-05-2022 07:14-0400 Respiratory rate 14 /min GENERAL MATCHER-C Genevieve Sargent Work Phone: [facility] Work Phone: 04-05-2022 07:14-0400 SaO2% (BldA) [Mass fraction] 98 % GENERAL MATCHER-C Genevieve [employer] Work Phone: [facility] Work Phone: 04-05-2022 07:14-0400 Systolic blood pressure 118 mm[Hg] GENERAL MATCHER-C Genevieve Sargent Work Phone: [facility] Work Phone: 12-08-2021 11:00-0400 Body height 163.83 cm GENERAL MATCHER-C Genevieve [employer] Work Phone: [facility] Work Phone: 12-08-2021 11:00-0400 Body mass index (BMI) [Ratio] 33.3 kg/m2 GENERAL MATCHER-C Genevieve [employer] Work Phone: [facility] Work Phone: 12-08-2021 11:00-0400 Body weight 89.35 kg GENERAL MATCHER-C Genevieve Sargent Work Phone: [facility] Work Phone: 12-08-2021 11:00-0400 Diastolic blood pressure 70 mm[Hg] GENERAL MATCHER-C Genevieve [employer] Work Phone: [facility] Work Phone: 12-08-2021 11:00-0400 Systolic blood pressure 126 mm[Hg] GENERAL MATCHER-C Genevieve [employer] Work Phone: [facility] Work Phone: 09-04-2021 07:39-0500 Body mass index (BMI) [Ratio] 32.4 kg/m2 GENERAL MATCHER-C Genevieve [employer] Work Phone: [facility] Work Phone: 09-04-2021 07:39-0500 Body temperature 97.5 [degF] GENERAL MATCHER-C Genevieve [employer] Work Phone: [facility] Work Phone: 09-04-2021 07:39-0500 Body weight 87.08 kg GENERAL MATCHER-C Genevieve Banner Work Phone: [facility] Work Phone: 09-04-2021 07:39-0500 Diastolic blood pressure 76 mm[Hg] GENERAL MATCHER-C Genevieve Banner Work Phone: [facility] Work Phone: 09-04-2021 07:39-0500 Heart rate 103 /min GENERAL MATCHER-C Genevieve Sargent Work Phone: [facility] Work Phone: 09-04-2021 07:39-0500 Respiratory rate 15 /min GENERAL MATCHER-C Genevieve Sargent Work Phone: [facility] Work Phone: 09-04-2021 07:39-0500 SaO2% (BldA) [Mass fraction] 95 % GENERAL MATCHER-C Genevieve [employer] Work Phone: [facility] Work Phone: 09-04-2021 07:39-0500 Systolic blood pressure 110 mm[Hg] GENERAL MATCHER-C Genevieve Banner Work Phone: [facility] Work Phone: Encounters Encounter Date Encounter Type Care Provider Facility Start: 02-27-2025 End: 02-27-2025 ambulatory Levy Burnett MD Work Phone: -Laboratory [facility] Start: 02-27-2025 End: 02-27-[address] Levy Burnett MD -Laboratory [facility] Start: 02-27-2025 End: 02-27-2025 ambulatory Levy Burnett Facility:[facility] Start: 09-03-2024 End: 09-03-2024 ambulatory Jordon Chava Facility:[facility] Start: 09-01-2024 End: 09-01-2024 Emergency department patient visit Richard Villatoro Facility:[facility] Start: 04-19-2024 End: [facility] Start: 04-16-2024 End: 04-16-2024 ambulatory Chalon Hortencia Facility:[facility] Start: 04-05-2024 End: 04-05-2024 ambulatory Chalon Hortencia Facility:[facility] Start: 04-03-2024 End: 04-03-20[facility] Start: 11-18-2023 End: 11-18-2023 ambulatory [facility] Work Phone: Start: 11-18-2023 End: 11-18-2023 Patient encounter procedure [facility] Start: 05-26-2023 End: 05-26-2023 ambulatory [facility] Work Phone: Start: 05-26-2023 End: 05-26-2023 Patient encounter procedure [facility] Work Phone: Start: 01-19-2023 End: 01-19-2023 ambulatory [facility] Work Phone: Start: 01-19-2023 End: 01-19-2023 Patient encounter procedure [facility] Start: 06-22-2022 End: 06-22-2022 ambulatory GENERAL MATCHER-C Genevieve Sargent Work Phone: [facility] Work Phone: Start: 06-22-2022 End: 06-22-2022 Patient encounter procedure GENERAL MATCHER-C Genevieve Sargent Work Phone: [facility] Start: 04-05-2022 Non-patient / Non-visit GENERAL MATCHER-C Caryl Sargent Work Phone: [facility] Start: 04-05-2022 End: 04-05-2022 ambulatory GENERAL MATCHER-Caryl Sargent Work Phone: [facility] Work Phone: Start: 04-05-2022 End: 04-05-2022 Patient encounter procedure GENERAL MATCHER-Caryl Sargent Work Phone: [facility]-Cardiov[facility] Start: 04-05-2022 End: 04-05-2022 Patient encounter procedure GENERAL MATCHER-Caryl Sargent Work Phone: [facility] Start: 12-08-2021 End: 12-08-2021 Patient encounter procedure GENERAL MATCHER-Caryl Sargent Work Phone: [facility] Start: 12-08-2021 End: 12-08-2021 Patient encounter procedure GENERAL MATCHER-Caryl Sargent Work Phone: [facility]-Outpatient Breast Imaging Start: 09-04-2021 End: 09-04-2021 Patient encounter procedure GENERAL MATCHER-Caryl Sargent Work Phone: [facility] Start: 06-17-2020 End: 06-17-2020 Subsequent hospital visit by physician Tamera Segura Work Phone: [employer] Comment on above: Arrived Start: 05-07-2019 End: 05-07-2019 Subsequent hospital visit by physician Tamera Segura Work Phone: [employer] [facility] Comment on above: Arrived Start: 05-26-2018 Patient encounter procedure LEA CANTU Facility:[facility] Start: 03-28-2018 Patient encounter procedure CHARLIE PAN Facility:[id number] Start: 03-22-2018 Patient encounter procedure CHARLIE PAN Facility:[id number] Start: 03-16-2018 Patient encounter procedure CHARLIE PAN Facility:[id number] Procedures Date Procedure Procedure Detail Performing Clinician Start: 02-27-2025 Vitamin D, 25-hydrox y measurement Levy Burnett MD Work Phone: Comment on above: Vitamin D StatusDefi ciency: <20 ng/mL (50nmol/L)Insufficiency: 20-30 ng/mL (50-75 nmol/L)Sufficiency: 30-100 ng/mL (75-250 nmol/L)Toxicity: >100 ng/mL (>250 nmol/L) Start: 05-26-2023 Plain chest X-ray Start: 12-08-2021 Screening mammography N P-Caryl Genevieve Sargent Work Phone: Start: 05-07-2019 Screening digital br east tomosynthesis bi Tamera Segura Work Phone: Plan of Treatment Date Care Activity Detail Author Start: 05-07-2021 Screening for malign ant neoplasm of breast Breast cancer screen [place], [place] Start: 03-25-2020 Influenza vaccination Flu vaccine (# 1) [place] Start: 03-25-2019 Influenza vaccination Flu vaccine (# 1) [place] Start: 09-15-2018 Breast cancer screen Breast cancer s creen [place] Start: 09-25-2017 Cervical cancer screen Cervical canc er [place] Start: 09-25-2017 Screening for malign ant neoplasm of cervix Cervical cancer screen [place] Start: 2014 Colon cancer screen colonoscopy Colon cancer screen colonoscopy [place] Start: 2014 Screening for malign ant neoplasm of colon Colon cancer screen colonoscopy [place] Start: 2014 Shingles Vaccine (1 of 2) [place] Vaccine (1 of 2) [place] Start: 2004 Lipid panel Lipid screen [place], [place] Start: 2004 Lipid screen Lipid screen [place] Start: 1983 DTaP/Tdap/Td vaccine (1 - Tdap) DTaP/Tdap/Td vaccine (1 - Tdap) [place], [place] Start: 1979 HIV screen HIV screen [place], [place] Start: 1979 [facility] [place] [place] Start: 1964 Hepatitis C screen Hepatitis C scree n [place], [place] Start: 1964 Hepatitis C screening Hepatitis C sc reelouis [place], [place] End: 06-17-2020 Screening digital breast tomosynthesis bi Ramon Levy Digital Screen Bilateral Imaging Routine Once for 1 Occurrences starting 06/17/2020 until 06/17/2020 [place] Comment on above: Once for 1 Occurrenc es starting 06/17/2020 until 06/17/2020 Screening digital br east tomosynthesis bi Ramon Levy Digital Screen Bilateral Imaging Routine 06/17/2020 11:30 AM EST [place], [place] Payers Date Payer Category Payer Self-pay [id number] 2024 Department [facility] ( and others) [id number] 2024 Self-pay [id number] 2024 Unknown [id number] 2014 Unknown [employer] [address] xxxxxxxxxxxx 2014-Present [phone] [address] [place] [id number] xxxxxxxxxxxx [id number] 2014 Unknown [employer] [address] [id number] 2014-Present [phone] [address] [place] [address] [id number] 2008 Unknown 1965 Unknown [id number] .[id number] Private Health Insurance [id number] Unknown [id number] Unknown ANTHEM [id number] Unknown [id number] Unknown [id number] .462 Unknown [id number] .462 Unknown [id number] .462 Unknown [id number] .462 Unknown [id number] .462 Unknown [id number] .462 Social History Date Type Detail Facility Start: 08-27-2015 End: 09-01-2024 Tobacco smoking status NJIS Never smoker [facility] Start: 08-27-2015 Alcohol intake Not Asked [employer] Sex Assigned At Not on file [facility] Start: 08-27-2015 Tobacco use and exposure Never used [employer] Start: 12-08-2021 End: 04-05-2022 Tobacco smoking status NJIS Unknown if ever smoked [facility] Start: 1965 Sex Assigned At Female W [facility] Evaluation note Note Date & Type Note Facility Evaluation note Diagnosis Onset Date Family history of malignant neoplasm of ovary in first degree relative acute ABRAHAM (stress urinary incontinence, female) acute [facility] Work Phone: Evaluation note Note Date & Type Note Facility Evaluation note Diagnosis Onset Date Pain of left lower extremity acute [facility] Work Phone: Evaluation note Note Date & Type Note Facility Evaluation note No assessment information availa ble [facility] Work Phone: Reason for referral (narrative) Note Date & Type Note Facility Reason for referral (narrative) No reason for referral information available [facility] Work Phone: Summary Purpose Family History No Family History Records Found Relationship Condition Age at Onset Recorded Date/T tahir father Myocardial infarction Unknown brother Myocardial infarction Unknown Cerebrovascular accident (CVA) Unknown sister Malignant neoplasm of ovary Unknown mother Malignant neoplasm of ovary Unknown Not Specified Hyperlipidemia Unknown Relationship Condition Age at Onset Recorded Date/T tahir father Myocardial infarction Unknown brother Myocardial infarction Unknown Cerebrovascular accident (CVA) Unknown sister Malignant neoplasm of ovary Unknown mother Malignant neoplasm of ovary Unknown unrelated friend Hyperlipidemia Unknown Advance Directives No Advanced Directives Records FoundDocuments on File Type Date Recorded Patient Railways Assistant Expl anation Advance Directives and Living Will 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 Documents on File Type Date Recorded Patient Railways Assistant Expl anation ACP-Advance Directive ACP-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 Chief Complaint and Reason for Visit Chief Complaint RAPID ANTIGEN FOR TR LORI 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) Reason for Visit Family history of ma lignant neoplasm of ovary in first degree relative ABRAHAM (stress urinary incontinence, female) Chief Complaint PAIN IN BL LEGS LLE PAIN R/O DVT Reason for Visit Pain of left lower e xtremity Chief Complaint SOB Additional Source Comments INFORMATION SOURCE (unrecogn ized section and content) DATE CREATED AUTHOR 02/14/2018 [employer] DATE CREATED AUTHOR AUTHOR'S ORGANIZ ATION 07/02/2018 [facility] DATE CREATED AUTHOR AUTHOR'S ORGANIZ ATION 05/01/2019 [facility] DATE CREATED AUTHOR AUTHOR'S ORGANIZ ATION 06/24/2020 [facility] DATE CREATED AUTHOR AUTHOR'S ORGANIZ ATION 03/09/2025 [facility] Goals (unrecognized section and content) Goals may be documented in a n alternate sectionGoals may be documented in an alternate sectionGoals may be documented in an alternate sectionGoals may be documented in an alternate sectionGoals may be documented in an alternate sectionGoals may be documented in an alternate sectionGoals may be documented in an alternate section Care Teams (unrecognized sec tion and content) Team Status: Active Member Role Status Bright Esquivel DO Primary Care Provider Active Team Status: Inactive Member Role Status Bright Esquivel DO Primary Care Provider, Attending Provider Active Team Status: Inactive Member Role Status Bright Burnett MD Attending Provider, Referring Provide r Active Jeanie Esquivel DO Primary Care Provider Active Team Status: Active Member Role/Relationship Status Bright Burnett MD Primary Care Provider Active Team Status: Inactive Member Role/Relationship Status Bright Burnett MD Primary Care Provider Active St art: February 27, 2025 End: February 27, 2025 Levy Burnett MD Attending Provider Active Start : February 27, 2025 End: February 27, 2025 Levy Burnett MD Referring Provider Active Start : February 27, 2025 End: February 27, 2025 FOR RECORDS PERTAINING TO PATIENTS WHO ARE OR HAVE BEEN ENROLLED IN A CHEMICAL DEPENDENCY/SUBSTANCEABUSE PROGRAM, SOME INFORMATION MAY BE OMITTED. This clinical summary was aggregated from multiple sources. Caution should be exercised in using it in the provision of clinical care. This summary normalizes information from multiple sources, and as a consequence, information in this document may materially change the coding, format and clinical context of patient data. In addition, data may be omitted in some cases. CLINICAL DECISIONS SHOULD BE BASED ON THE PRIMARY CLINICAL RECORDS. [facility] [employer] provides no warranty or guarantee of the accuracy or completeness of information in this document.
== END | disposition home or self-care (01) ==
LOC: OPBI 07:46
PROVIDERS: PCP Family Medicine; Referring Provider Family Medicine; Visit Provider Family Medicine
DX: Z12.31 Encounter for screening mammogram for malignant neoplasm of breast (principal)
CPT/HCPCS: 77063; 77067